=== PATIENT | male | born 1955 | race American Indian/Alaskan Native ===

== ENCOUNTER 2020-07-27 20:10 | Inpatient (IN) | payer OTHER ==
--- NOTE | 2020-07-27 20:56 | Event Note ---
ED Screening Note Date of service: 07/27/20 Time: 20:51 ED Screening Note: 65-year-old -S[place]i male with a past medical history asthma, hypertension, diabetes and COPD presents to the emergency room for 1 month of intermittent shortness of breath. It is noted that patient's has a pulse ox of 84% on room air. Patient endorses that his pulse ox will, Sometimes drop as low with the 70s . Patient states that he was seen by . Not too long ago was told he is walking pneumonia was placed on antibiotics. Patient states he has finished that and still complains of shortness of breath. Patient is currently on Trelegy, glipizide amlodipine and albuterol. This initial assessment/diagnostic orders/clinical plan/treatment(s) is/are subject to change based on patients health status, clinical progression and re- assessment by fellow clinical providers in the ED. Further treatment and workup at subsequent clinical providers discretion. Patient/guardian urged not to elope from the ED as their condition may be serious if not clinically assessed and managed. Initial orders include: CBC CMP chest x-ray patient has been placed on oxygen 2 L via nasal cannula Inform charge nurse and ER attending patient status.
--- NOTE | 2020-07-27 21:44 | XRay Report ---
CHEST 2 VIEWS 2118 INDICATION / CLINICAL INFORMATION: sob,cough and rales COMPARISON: None available. FINDINGS: SUPPORT DEVICES: None. HEART / MEDIASTINUM: No significant abnormality. LUNGS / PLEURA: Bibasilar moderate atelectatic changes are seen. No definite pleural effusions are no tam. No pneumothorax. ADDITIONAL FINDINGS: No significant additional findings. IMPRESSION: Moderate basilar atelectatic changes. Developing pneumonitis is not excluded. Signer Name: Toño Velez MD Signed: 07/27/2020 9:39 PM Workstation Name: [id number]
--- NOTE | 2020-07-27 21:57 | Emergency Department Report ---
HPI - General Chief Complaint: Dyspnea/Respdistress Time Seen by Provider: 07/27/20 21:31 - HPI HPI: This is a 65-year-old -[place] male presents to the emergency department with complaint of a 1 week history of progressively worsening shortness of breath, as well as a mixed dry and productive cough. He denies any fever, chest pain, lower extremity swelling, nausea, vomiting or diaphoresis. Patient has a history of COPD but is not oxygen dependent at home. He also has a history of asthma and hypertension. Patient says that he was diagnosed with walking pneumonia about 2 or 3 weeks ago and was placed on antibiotics. After finishing the antibiotics the patient says that his condition "went in the other direction." He does not have a primary care physician. The patient travels a lot for work but no obvious contact with anyone with COVID-19. He says that he took a negative COVID-19 test yesterday. He denies any tobacco or illicit drug use. He has not taken anything for symptoms prior to presentation today. The patient was found to have a room air pulse ox of 84% through triage. While he is not oxygen dependent at home, the patient does check his oxygen levels and says that sometimes he will go into the low 70s at night. ED Past Medical Hx - Past Medical History Previous Medical History?: Yes Hx Hypertension: Yes Hx Asthma: Yes Hx COPD: Yes - Surgical History Past Surgical History?: No - Social History Smoking Status: Never Smoker Substance Use Type: None ED Review of Systems ROS: Stated complaint: KATHY Other details as noted in HPI Comment: All other systems reviewed and negative Constitutional: denies: chills, fever Eyes: denies: eye pain, vision change ENT: denies: ear pain, throat pain Respiratory: cough, shortness of breath Cardiovascular: denies: chest pain, edema Gastrointestinal: denies: abdominal pain, vomiting Genitourinary: denies: dysuria, discharge Musculoskeletal: denies: back pain, arthralgia Skin: denies: rash, lesions Neurological: denies: headache, weakness Physical Exam - Physical Exam Vital Signs: Vital Signs 07/27/20 20:16 Temperature 98.0 F Pulse Rate 112 H Respiratory 22 Rate Blood Pressure 184/102 O2 Sat by Pulse 84 Oximetry Physical Exam: GENERAL: The patient is well-developed well-nourished. HENT: Normocephalic. Atraumatic. Patient has moist mucous membranes. EYES: Extraocular motions are intact. NECK: Supple. Trachea is midline. CHEST/LUNGS: Mild expiratory wheezing. Mild tachypnea but no accessory muscle use. There is no respiratory distress noted. HEART/CARDIOVASCULAR: Regular. There is no tachycardia. There is no murmur. ABDOMEN: Abdomen is soft, nontender. Patient has normal bowel sounds. SKIN: Skin is warm and dry. NEURO: The patient is awake, alert, and oriented. The patient is cooperative. The patient has no focal neurologic deficits. Normal speech. MUSCULOSKELETAL: There is no tenderness or deformity. There is no limitation range of motion. ED Course Vital Signs 07/27/20 20:16 Temperature 98.0 F Pulse Rate 112 H Respiratory 22 Rate Blood Pressure 184/102 O2 Sat by Pulse 84 Oximetry ED Medical Decision Making - Lab Data Result diagrams: 07/27/20 21:57 07/27/20 21:57 Lab Results 07/27/20 07/27/20 07/27/20 Range/Units 21:57 21:57 21:57 WBC 8.0 (4.5-11.0) K/mm3 RBC 4.78 (3.65-5.03) M/mm3 Hgb 14.3 (11.8-15.2) gm/dl Hct 44.0 (35.5-45.6) % MCV 92 (84-94) fl MCH 30 (28-32) pg MCHC 33 (32-34) % RDW 13.8 (13.2-15.2) % Plt Count 141 (140-440) K/mm3 Lymph % (Auto) 16.3 (13.4-35.0) % [place] % (Auto) 12.4 H (0.0-7.3) % Eos % (Auto) 3.5 (0.0-4.3) % Baso % (Auto) 0.6 (0.0-1.8) % Lymph # (Auto) 1.3 (1.2-5.4) K/mm3 [place] # (Auto) 1.0 H (0.0-0.8) K/mm3 Eos # (Auto) 0.3 (0.0-0.4) K/mm3 Baso # (Auto) 0.0 (0.0-0.1) K/mm3 Seg Neutrophils % 67.2 (40.0-70.0) % Seg Neutrophils # 5.4 (1.8-7.7) K/mm3 PT 14.8 (12.2-14.9) Sec. INR 1.16 H (0.87-1.13) APTT 28.1 (24.2-36.6) Sec. D-Dimer 161.71 (0-234) ng/mlDDU Sodium 142 (137-145) mmol/L Potassium 4.4 (3.6-5.0) mmol/L Chloride 102.6 (98-107) mmol/L Carbon Dioxide 33 H (22-30) mmol/L Anion Gap 11 mmol/L BUN 28 H (9-20) mg/dL Creatinine 1.4 H (0.8-1.3) mg/dL Estimated GFR > 60 ml/min BUN/Creatinine Ratio 20 % Glucose 140 H (75-100) mg/dL Calcium 9.0 (8.4-10.2) mg/dL Total Bilirubin 0.20 (0.1-1.2) mg/dL AST 17 (5-40) units/L ALT 30 (7-56) units/L Alkaline Phosphatase 70 (35-129) units/L Troponin T (0.00-0.029) ng/mL NT-Pro-B Natriuret Pep (0-900) pg/mL Total Protein 5.9 L (6.3-8.2) g/dL Albumin 4.0 (3.9-5) g/dL Albumin/Globulin Ratio 2.1 % 07/27/20 Range/Units 21:57 WBC (4.5-11.0) K/mm3 RBC (3.65-5.03) M/mm3 Hgb (11.8-15.2) gm/dl Hct (35.5-45.6) % MCV (84-94) fl MCH (28-32) pg MCHC (32-34) % RDW (13.2-15.2) % Plt Count (140-440) K/mm3 Lymph % (Auto) (13.4-35.0) % [place] % (Auto) (0.0-7.3) % Eos % (Auto) (0.0-4.3) % Baso % (Auto) (0.0-1.8) % Lymph # (Auto) (1.2-5.4) K/mm3 [place] # (Auto) (0.0-0.8) K/mm3 Eos # (Auto) (0.0-0.4) K/mm3 Baso # (Auto) (0.0-0.1) K/mm3 Seg Neutrophils % (40.0-70.0) % Seg Neutrophils # (1.8-7.7) K/mm3 PT (12.2-14.9) Sec. INR (0.87-1.13) APTT (24.2-36.6) Sec. D-Dimer (0-234) ng/mlDDU Sodium (137-145) mmol/L Potassium (3.6-5.0) mmol/L Chloride (98-107) mmol/L Carbon Dioxide (22-30) mmol/L Anion Gap mmol/L BUN (9-20) mg/dL Creatinine (0.8-1.3) mg/dL Estimated GFR ml/min BUN/Creatinine Ratio % Glucose (75-100) mg/dL Calcium (8.4-10.2) mg/dL Total Bilirubin (0.1-1.2) mg/dL AST (5-40) units/L ALT (7-56) units/L Alkaline Phosphatase (35-129) units/L Troponin T 0.021 (0.00-0.029) ng/mL NT-Pro-B Natriuret Pep 11.56 (0-900) pg/mL Total Protein (6.3-8.2) g/dL Albumin (3.9-5) g/dL Albumin/Globulin Ratio % - EKG Data -: EKG Interpreted by Wy EKG shows normal: sinus rhythm, axis, intervals, QRS complexes, ST-T waves Rate: tachycardia (101 bpm) - EKG Data When compared to previous EKG there are: previous EKG unavailable Interpretation: normal EKG - Radiology Data Radiology results: report reviewed CHEST 2 VIEWS 9068 INDICATION / CLINICAL INFORMATION: sob,cough and rales CO MPARISON: None available. FINDINGS: SUPPORT DEVICES: None. HEART / MEDIASTINUM: No significant abnormality. LUNGS / PLEURA: Bibasilar moderate atelectatic changes are seen. No definite pleural effusions are noted. No pneumothorax. ADDITIONAL FINDINGS: No significant additional findings. IMPRESSION: Moderate basilar atelectatic changes. Developing pneumonitis is not excluded. - Medical Decision Making This patient presents to the emergency department with a complaint of some progressively worsening shortness of breath and a mixed dry and productive cough. The patient had a room air oxygen saturation of 84%. He is not oxygen dependent for his COPD. The patient was placed on supplemental oxygen via nasal cannula and he went up into the high 90s. Chest x-ray shows some atelectatic changes versus some developing pneumonitis. I once again tried the patient off of oxygen, while he was resting and not exertional, and his pulse ox went down into the low 80s. It goes down into the 70s when the patient is sleeping. Patient's labs have been mostly unremarkable other than some mild elevation in the carbon dioxide. Patient has been placed on Solu-Medrol and has been given a breathing treatment. As the patient has desaturation without supplemental oxygen and is not oxygen dependent at home, will be admitted to the hospital for further evaluation and treatment. The patient has been accepted for admission by the hospitalist, Dr. Rome. Critical Care Time: No Critical care attestation.: If time is entered above; I have spent that time in minutes in the direct care of this critically ill patient, excluding procedure time. ED Disposition Clinical Impression: COPD exacerbation, Hypoxia Disposition: OP ADMIT IP TO THIS HOSP Is pt being admited?: Yes Condition: Serious Time of Disposition: 23:20
[2020-07-27 22:39] LABS: Basophils % (Auto) 0.6 % (0.0-1.8); Eosinophils # (Auto) 0.3 K/mm3 (0.0-0.4); Eosinophils % (Auto) 3.5 % (0.0-4.3); Hemoglobin 14.3 gm/dl (11.8-15.2); Lymphocytes # (Auto) 1.3 K/mm3 (1.2-5.4); Lymphocytes % (Auto) 16.3 % (13.4-35.0); Mean Corpuscular HGB Conc 33 % (32-34); Mean Corpuscular Volume 92 fl (84-94); Monocytes % (Auto) 12.4 % (0.0-7.3); Platelet Count 141 K/mm3 (140-440); Red Blood Count 4.78 M/mm3 (3.65-5.03); Red Cell Distribution Width 13.8 % (13.2-15.2)
[2020-07-27 22:47] LABS: INR 1.16 (0.87-1.13)
[2020-07-27 22:48] LABS: Partial Thromboplastin Time 28.1 Sec. (24.2-36.6)
[2020-07-27 22:53] LABS: Alanine Aminotransferase 30 units/L (7-56); BUN/Creatinine Ratio 20; Blood Urea Nitrogen 28 mg/dL (9-20); Hemolysis Index 16
[2020-07-27] MEDS ORDERED: methylPREDNISolone Sod Succinate 125 MG/2 ML INJ IV ONE (22:57)
[2020-07-27] MEDS ORDERED: IPRATROPIUM/ALBUTEROL SULFATE 3 ML AMPUL.NEB IH ONE (22:57)
[2020-07-27] MEDS ORDERED: ACETAMINOPHEN 325 MG TAB PO PRN (23:29)
[2020-07-27] MEDS ORDERED: ONDANSETRON 4 MG/2 ML INJ IV PRN (23:29)
--- NOTE | 2020-07-27 23:40 | History and Physical Report ---
History of Present Illness Date of examination: 07/27/20 Chief complaint: Shortness of breath Acute COPD exacerbation History of present illness: 65-year-old -Mexican male with past medical history of COPD, asthma and hypertension was brought to the emergency room to the emergency department with complaint of a 1 week history of progressively worsening shortness of breath, as well as a mixed dry and productive cough. He denies any fever, chest pain, lower extremity swelling, nausea, vomiting or diaphoresis. Patient says that he was diagnosed with walking pneumonia about 2 or 3 weeks ago and was placed on antibiotics. After finishing the antibiotics the patient says that his condition "went in the other direction." He does not have a primary care physician. He says that he took a negative COVID-19 test yesterday Past History Past Medical History: COPD, hypertension Medications and Allergies Allergies Allergy/AdvReac Type Severity Reaction Status Date / Time No Known Allergies Allergy Verified 07/27/20 20:17 Review of Systems Ears, nose, mouth and throat: deferred Cardiovascular: shortness of breath, high blood pressure Respiratory: cough, cough with sputum, shortness of breath, dyspnea on exertion Exam - Constitutional Vitals: Temp Pulse Resp BP Pulse Ox 98.0 F 112 H 22 184/102 84 07/27/20 20:16 07/27/20 20:16 07/27/20 20:16 07/27/20 20:16 07/27/20 20:16 General appearance: Present: mild distress - EENT Eyes: Present: PERRL, EOM intact ENT: hearing intact, clear oral mucosa - Neck Neck: Present: supple, normal ROM - Respiratory Respiratory effort: normal Respiratory: bilateral: wheezing - Cardiovascular Rhythm: regular Heart Sounds: Present: S1 & S2 Peripheral Pulses: within normal limits - Abdominal General gastrointestinal: Present: soft, non-tender, non-distended, normal bowel sounds - Integumentary Integumentary: Present: clear, warm, dry - Musculoskeletal Musculoskeletal: gait normal, strength equal bilaterally - Psychiatric Psychiatric: appropriate mood/affect, intact judgment & insight - Neurologic Neurologic: CNII-XII intact, moves all extremities HEART Score - HEART Score Troponin: Troponin T 0.021 ng/mL (0.00-0.029) 07/27/20 21:57 Results - Labs CBC & Chem 7: 07/27/20 21:57 07/27/20 21:57 Labs: Laboratory Last Values WBC 8.0 K/mm3 (4.5-11.0) 07/27/20 21:57 RBC 4.78 M/mm3 (3.65-5.03) 07/27/20 21:57 Hgb 14.3 gm/dl (11.8-15.2) 07/27/20 21:57 Hct 44.0 % (35.5-45.6) 07/27/20 21:57 MCV 92 fl (84-94) 07/27/20 21:57 MCH 30 pg (28-32) 07/27/20 21:57 MCHC 33 % (32-34) 07/27/20 21:57 RDW 13.8 % (13.2-15.2) 07/27/20 21:57 Plt Count 141 K/mm3 (140-440) 07/27/20 21:57 Lymph % (Auto) 16.3 % (13.4-35.0) 07/27/20 21:57 [place] % (Auto) 12.4 % (0.0-7.3) H 07/27/20 21:57 Eos % (Auto) 3.5 % (0.0-4.3) 07/27/20 21:57 Baso % (Auto) 0.6 % (0.0-1.8) 07/27/20 21:57 Lymph # (Auto) 1.3 K/mm3 (1.2-5.4) 07/27/20 21:57 [place] # (Auto) 1.0 K/mm3 (0.0-0.8) H 07/27/20 21:57 Eos # (Auto) 0.3 K/mm3 (0.0-0.4) 07/27/20 21:57 Baso # (Auto) 0.0 K/mm3 (0.0-0.1) 07/27/20 21:57 Seg Neutrophils % 67.2 % (40.0-70.0) 07/27/20 21:57 Seg Neutrophils # 5.4 K/mm3 (1.8-7.7) 07/27/20 21:57 PT 14.8 Sec. (12.2-14.9) 07/27/20 21:57 INR 1.16 (0.87-1.13) H 07/27/20 21:57 APTT 28.1 Sec. (24.2-36.6) 07/27/20 21:57 D-Dimer 161.71 ng/mlDDU (0-234) 07/27/20 21:57 Sodium 142 mmol/L (137-145) 07/27/20 21:57 Potassium 4.4 mmol/L (3.6-5.0) 07/27/20 21:57 Chloride 102.6 mmol/L (98-107) 07/27/20 21:57 Carbon Dioxide 33 mmol/L (22-30) H 07/27/20 21:57 Anion Gap 11 mmol/L 07/27/20 21:57 BUN 28 mg/dL (9-20) H 07/27/20 21:57 Creatinine 1.4 mg/dL (0.8-1.3) H 07/27/20 21:57 Estimated GFR > 60 ml/min 07/27/20 21:57 BUN/Creatinine Ratio 20 % 07/27/20 21:57 Glucose 140 mg/dL (75-100) H 07/27/20 21:57 Calcium 9.0 mg/dL (8.4-10.2) 07/27/20 21:57 Total Bilirubin 0.20 mg/dL (0.1-1.2) 07/27/20 21:57 AST 17 units/L (5-40) 07/27/20 21:57 ALT 30 units/L (7-56) 07/27/20 21:57 Alkaline Phosphatase 70 units/L (35-129) 07/27/20 21:57 Troponin T 0.021 ng/mL (0.00-0.029) 07/27/20 21:57 NT-Pro-B Natriuret Pep 11.56 pg/mL (0-900) 07/27/20 21:57 Total Protein 5.9 g/dL (6.3-8.2) L 07/27/20 21:57 Albumin 4.0 g/dL (3.9-5) 07/27/20 21:57 Albumin/Globulin Ratio 2.1 % 07/27/20 21:57 - Imaging and Cardiology Chest x-ray: report reviewed Assessment and Plan - Patient Problems (1) COPD exacerbation Current Visit: Yes Status: Acute Plan to address problem: Admit the patient to the medical telemetry. Put the patient on cardiac diet. Oxygen by nasal cannula 3 L/min. Rocephin 1 g IV daily and Zithromax 250 mg p.o. daily. DuoNeb by nebulizer every 4 hours as needed. Solu-Medrol 80 mg IV every 8 hours. Due to the blood culture and sputum culture. Patient also needs outpatient sleep study for obstructive sleep apnea. Protonix 40 mg p.o. daily for GI prophylaxis and heparin 5000 units subcu every 8 hours for DVT prophylaxis. (2) Hypoxia Current Visit: Yes Status: Acute Plan to address problem: Oxygen by nasal cannula 3 L/min. Rocephin 1 g IV daily and Zithromax 250 mg p.o. daily. DuoNeb by nebulizer every 4 hours as needed. Solu-Medrol 80 mg IV every 8 hours.
[2020-07-27] MEDS ORDERED: AZITHROMYCIN 250 MG TAB PO ONE (23:43)
[2020-07-28] MEDS: FAMOTIDINE 20 MG TAB PO SCH ×3 (00:41→22:13)
[2020-07-28] MEDS: methylPREDNISolone Sod Succinate 40 MG/1 ML INJ IV SCH ×4 (00:42→22:13)
[2020-07-28] MEDS: IPRATROPIUM/ALBUTEROL SULFATE 3 ML AMPUL.NEB IH SCH ×4 (02:26→20:35)
[2020-07-28 07:42] LABS: Hematocrit 46.4 % (35.5-45.6); Hemoglobin 15.1 gm/dl (11.8-15.2); Mean Corpuscular HGB Conc 33 % (32-34); Mean Corpuscular Volume 93 fl (84-94); Platelet Count 133 K/mm3 (140-440); Red Blood Count 4.99 M/mm3 (3.65-5.03); Red Cell Distribution Width 13.7 % (13.2-15.2)
[2020-07-28 08:03] LABS: BUN/Creatinine Ratio 22; Blood Urea Nitrogen 26 mg/dL (9-20); Hemolysis Index 15
[2020-07-28 08:29] LABS: Anisocytosis 1+; Band Neutrophils # (Manual) 0.1 K/mm3; Total Cells Counted 100
[2020-07-28 08:30] LABS: Platelet Estimate Consistent w Auto; Toxic Granulation 1+
[2020-07-28] MEDS ORDERED: DEXTROSE 50% IN WATER (25GM) 50 ML SYRINGE IV PRN (11:51)
[2020-07-28] MEDS: INSULIN LISPRO 100 UNIT/ML VIAL 3 mL SUB-Q SCH ×3 (12:46→22:14)
--- NOTE | 2020-07-28 13:54 | Progress Note ---
Assessment and Plan (1) COPD exacerbation Current Visit: Yes Status: Acute Plan to address problem: Patient on nebulizing treatments as needed. Oxygen by nasal cannula 3 L/min. Solu-Medrol 80 mg IV every 8 hours. (2) Hypoxia Current Visit: Yes Status: Acute Patient still requiring 3 to 4 L of oxygen by nasal cannula. Patient had a bout of pneumonia about 2 to [address] check [address] angiogram. We will also check for COVID-19. We will adjust antibiotics as needed. 3. Diabetes mellitus We will monitor Accu-Cheks closely. Subjective Date of service: 07/28/20 Principal diagnosis: (1) COPD exacerbation Interval history: 65-year-old -[place] male with past medical history of COPD, asthma and hypertension was brought to the emergency room to the emergency department with complaint of a 1 week history of progressively worsening shortness of breath, as well as a mixed dry and productive cough. He denies any fever, chest pain, l ower extremity swelling, nausea, vomiting or diaphoresis. Patient says that he was diagnosed with walking pneumonia about 2 or 3 weeks ago and was placed on antibiotics. After finishing the antibiotics the patient says that his condition "went in the other direction." He does not have a primary care physician. He says that he took a negative COVID-19 test yesterday. 07/28/2020 Patient indicates that he was diagnosed with pneumonia in [place] about 2 weeks ago. Was placed on antibiotics but since he ran out of his antibiotics he became short of breath again and started having some cough which is mildly productive of sputum. Objective - Constitutional Vitals: Vital Signs - 12hr 07/28/20 07/28/20 07/28/20 02:00 04:00 06:00 Temperature Pulse Rate 103 H 108 H 107 H Respiratory 18 16 18 Rate Blood Pressure 164/94 140/79 139/80 [Left] O2 Sat by Pulse 97 94 96 Oximetry 07/28/20 07/28/20 07/28/20 08:50 08:52 09:41 Temperature 98.4 F 98.4 F Pulse Rate 109 H 109 H Respiratory 20 20 20 Rate Blood Pressure 150/85 150/85 [Left] O2 Sat by Pulse 96 96 96 Oximetry General appearance: Present: no acute distress, well-nourished - EENT Eyes: PERRL, EOM intact ENT: hearing intact, clear oral mucosa Ears: bilateral: normal - Neck Neck: supple, normal ROM - Respiratory Respiratory effort: normal Respiratory: bilateral: CTA - Breasts Breasts: normal - Cardiovascular Rhythm: regular Heart Sounds: Present: S1 & S2. Absent: gallop, rub Extremities: pulses intact, No edema, normal color, Full ROM - Gastrointestinal General gastrointestinal: Present: soft, non-tender, non-distended, normal bowel sounds - Genitourinary Male genitourinary: normal - Integumentary Integumentary: clear, warm, dry - Musculoskeletal Musculoskeletal: 1, strength equal bilaterally - Neurologic Neurologic: moves all extremities - Psychiatric Psychiatric: memory intact, appropriate mood/affect, intact judgment & insight - Labs CBC & Chem 7: 07/28/20 07:28 07/28/20 07:28 Labs: Abnormal lab results 07/27/20 07/27/20 07/27/20 Range/Units 21:57 21:57 21:57 Hct (35.5-45.6) % Plt Count (140-440) K/mm3 [place] % (Auto) 12.4 H (0.0-7.3) % [place] # (Auto) 1.0 H (0.0-0.8) K/mm3 Seg Neuts % (Manual) (40.0-70.0) % Lymphocytes % (Manual) (13.4-35.0) % Seg Neutrophils # Man (1.8-7.7) K/mm3 Lymphocytes # (Manual) (1.2-5.4) K/mm3 INR 1.16 H (0.87-1.13) Potassium (3.6-5.0) mmol/L Carbon Dioxide 33 H (22-30) mmol/L BUN 28 H (9-20) mg/dL Creatinine 1.4 H (0.8-1.3) mg/dL Glucose 140 H (75-100) mg/dL POC Glucose (70-105) mg/dL Total Protein 5.9 L (6.3-8.2) g/dL 07/28/20 07/28/20 07/28/20 Range/Units 07:28 07:28 11:42 Hct 46.4 H (35.5-45.6) % Plt Count 133 L (140-440) K/mm3 [place] % (Auto) (0.0-7.3) % [place] # (Auto) (0.0-0.8) K/mm3 Seg Neuts % (Manual) 90.0 H (40.0-70.0) % Lymphocytes % (Manual) 7.0 L (13.4-35.0) % Seg Neutrophils # Man 8.1 H (1.8-7.7) K/mm3 Lymphocytes # (Manual) 0.6 L (1.2-5.4) K/mm3 INR (0.87-1.13) Potassium 5.5 H D (3.6-5.0) mmol/L Carbon Dioxide 34 H (22-30) mmol/L BUN 26 H (9-20) mg/dL Creatinine (0.8-1.3) mg/dL Glucose 332 H (75-100) mg/dL POC Glucose 325 H (70-105) mg/dL Total Protein (6.3-8.2) g/dL HEART Score - HEART Score Troponin: Troponin T 0.021 ng/mL (0.00-0.029) 07/27/20 21:57
[2020-07-28] MEDS ORDERED: VANCOMYCIN PHARMACY TO DOSE IV SCH (15:00)
[2020-07-28] MEDS ORDERED: VANCOMYCIN 2,000 MG in SODIUM CHLORIDE 0.9% 500 ML 500 ML IV ONE (15:00)
[2020-07-28 16:58] LABS: C-Reactive Protein 0.5 mg/dL (0.00-1.30)
[2020-07-28] MEDS: CEFEPIME/NS 2 GM/100 ML 2 GM/100 ML BAG IV SCH ×2 (18:55→22:14)
[2020-07-29] MEDS: methylPREDNISolone Sod Succinate 40 MG/1 ML INJ IV SCH ×3 (05:45→21:37)
[2020-07-29] MEDS ORDERED: VANCOMYCIN 1,750 MG in SODIUM CHLORIDE 0.9% 500 ML 500 ML IV SCH (06:00)
[2020-07-29] MEDS: CEFEPIME/NS 2 GM/100 ML 2 GM/100 ML BAG IV SCH ×2 (06:21→14:21)
[2020-07-29] MEDS: IPRATROPIUM/ALBUTEROL SULFATE 3 ML AMPUL.NEB IH SCH ×4 (07:13→19:01)
[2020-07-29] MEDS: INSULIN LISPRO 100 UNIT/ML VIAL 3 mL SUB-Q SCH ×4 (09:24→21:40)
[2020-07-29] MEDS: FAMOTIDINE 20 MG TAB PO SCH ×2 (09:24→21:37)
--- NOTE | 2020-07-29 13:36 | Consultation ---
History of Present Illness - Reason for Consult Consult date: 07/29/20 - History of Present Illness 65-year-old man past medical history COPD, asthma, hypertension brought to the hospital complaining of 1 week of shortness of breath which has been progressively worsening since onset. He also complains of dry cough as well. Denies any fevers, chills, chest pain. Reports receiving outpatient antibiotics 2 to 3 weeks prior to admission, but this did not help this as having outpatient negative Covid test the day prior to admission. Afebrile with a white count of 9. Normal renal function, normal procalcitonin. Covid pending. Currently on cefepime. No cultures available for review. Currently on 3 L nasal cannula. Imaging personally reviewed: Chest x-ray: Moderate basilar atelectasis. Review of systems: Deferred due to PPE conservation strategy. Past History Past Medical History: COPD, hypertension Medications and Allergies Allergies Allergy/AdvReac Type Severity Reaction Status Date / Time No Known Allergies Allergy Verified 07/27/20 20:17 Active Meds: Active Medications Acetaminophen (Acetaminophen 325 Mg Tab) 650 mg PO Q4H PRN PRN Reason: Pain MILD(1-3)/Fever >100.5/TYLER Albuterol/Ipratropium (Ipratropium/Albuterol Sulfate 3 Ml Ampul.Neb) 1 ampul IH Q6HRT [facility] Last Admin: 07/29/20 08:20 Dose: 1 ampul Documented by: Dextrose (Dextrose 50% In Water (25gm) 50 Ml Syringe) 50 ml IV Q30MIN PRN; Protocol PRN Reason: Hypoglycemia Famotidine (Famotidine 20 Mg Tab) 20 mg PO BID [facility] Last Admin: 07/29/20 09:24 Dose: 20 mg Documented by: Cefepime HCl (Cefepime/Ns 2 Gm/100 Ml) 2 gm in 100 mls @ 200 mls/hr IV Q8H [facility]; Protocol Last Admin: 07/29/20 06:21 Dose: 200 mls/hr Documented by: Vancomycin HCl 1,750 mg/ (Sodium Chloride) 535 mls @ 333.333 mls/hr IV Q12H [facility] Last Admin: 07/29/20 05:45 Dose: 333.333 mls/hr Documented by: Insulin Human Lispro (Insulin Lispro 100 Unit/Ml Vial 3 Ml) 0 unit SUB-Q ACHS [facility]; Protocol Last Admin: 07/29/20 12:33 Dose: 4 unit Documented by: Methylprednisolone Sodium Succinate (Methylprednisolone Sod Succinate 40 Mg/1 Ml Inj) 80 mg IV Q8HR [facility] Last Admin: 07/29/20 05:45 Dose: 80 mg Documented by: Ondansetron HCl (Ondansetron 4 Mg/2 Ml Inj) 4 mg IV Q8H PRN PRN Reason: Nausea And Vomiting Sodium Chloride (Sodium Chloride 0.9% 10 Ml Flush Syringe) 10 ml IV BID [facility] Last Admin: 07/29/20 09:25 Dose: 10 ml Documented by: Sodium Chloride (Sodium Chloride 0.9% 10 Ml Flush Syringe) 10 ml IV PRN PRN PRN Reason: LINE FLUSH Physical Examination - Constitutional Vitals: Vital Signs Temp Pulse Resp BP Pulse Ox 98.2 F 98 H 18 141/83 96 07/29/20 07:25 07/29/20 10:00 07/29/20 11:00 07/29/20 07:25 07/29/20 08:21 Temperature -Last 24 Hours Temperature 98.2 F Temperature 98.3 F Temperature 98.2 F Temperature 98.0 F Temperature 98.7 F Results - Labs CBC & Chem 7: 07/28/20 07:28 07/28/20 16:12 Labs: Abnormal lab results 07/28/20 07/28/20 07/28/20 Range/Units 16:12 16:27 21:25 Glucose 331 H (75-100) mg/dL POC Glucose 299 H 269 H (70-105) mg/dL Lactate Dehydrogenase 235 H (91-180) units/L 07/29/20 07/29/20 Range/Units 07:23 11:11 Glucose (75-100) mg/dL POC Glucose 251 H 297 H (70-105) mg/dL Lactate Dehydrogenase (91-180) units/L Assessment and Plan Cultures: Covid pending A/P: 65-year-old man past medical history COPD, asthma, hypertension admitted with probable COPD exacerbation. #Covid PUI: Minimal evidence of pneumonia on chest x-ray at present time. Follow-up test results #Acute hypoxic respiratory failure: Currently on 3 L nasal cannula #COPD exacerbation: Steroids per primary. #Asthma Recs: -Stop cefepime given normal white count and procalcitonin. -Follow-up Covid test results -Anticoagulation per hospital protocol -If COVID-19 positive will start remdesivir. Thank you for the consult, we will continue to follow. Desi Muñoz MD [facility] O: [phone] F: [phone]
--- NOTE | 2020-07-29 15:02 | Cat Scan Report ---
CTA CHEST WITH IV CONTRAST INDICATION: Hypoxia, rule out pneumonia. TECHNIQUE: Axial CT images were obtained through the chest after injection of IV contrast. 3 plane MIP reconstru ctions were produced. All CT scans at this location are performed using CT dose reduction for ALARA b y means of automated exposure control. COMPARISON: None available. FINDINGS: Pulmonary Arteries: No pulmonary emboli. Lungs: There are bibasilar consolidations with an associated tiny left pleural effusion. Trachea and Bronchi: No significant abnormality. Heart and Pericardium: No significant abnormality. Vasculature: No significant abnormality. Lymphatics: No lymphadenopathy. Additional Findings: None. Upper Abdomen: No acute findings. Skeletal Structures: No acute findings or aggressive bone lesions. IMPRESSION: 1. No CT evidence for pulmonary embolism. 2. Bibasilar consolidations with associated tiny left pleural effusion can indicate pneumonia or biba silar atelectasis. Signer Name: Rishi Hood MD Signed: 07/29/2020 2:58 PM Workstation Name: [id number]
[2020-07-29 17:10] LABS: Hematocrit 42.5 % (35.5-45.6); Hemoglobin 13.5 gm/dl (11.8-15.2); Mean Corpuscular HGB Conc 32 % (32-34); Mean Corpuscular Volume 93 fl (84-94); Platelet Count 157 K/mm3 (140-440); Red Blood Count 4.55 M/mm3 (3.65-5.03); Red Cell Distribution Width 13.9 % (13.2-15.2)
[2020-07-29 17:29] LABS: BUN/Creatinine Ratio 23; Blood Urea Nitrogen 32 mg/dL (9-20); Calcium 8.8 mg/dL (8.4-10.2); Hemolysis Index 6
[2020-07-29 18:08] LABS: Total Cells Counted 100
[2020-07-29 18:09] LABS: Platelet Estimate Consistent w Auto; Tear Drop Cells Rare
[2020-07-30] MEDS: methylPREDNISolone Sod Succinate 40 MG/1 ML INJ IV SCH ×3 (05:50→22:34)
[2020-07-30] MEDS: IPRATROPIUM/ALBUTEROL SULFATE 3 ML AMPUL.NEB IH SCH ×5 (06:26→20:39)
[2020-07-30] MEDS: INSULIN LISPRO 100 UNIT/ML VIAL 3 mL SUB-Q SCH ×3 (09:08→22:35)
[2020-07-30] MEDS: FAMOTIDINE 20 MG TAB PO SCH ×2 (09:09→22:34)
--- NOTE | 2020-07-30 16:36 | Progress Note ---
Assessment and Plan Cultures: Covid negative A/P: 65-year-old man past medical history COPD, asthma, hypertension admitted with probable COPD exacerbation. #Acute hypoxic respiratory failure: Currently on 2 L nasal cannula. Likely secondary to COPD exacerbation. Covid negative. #COPD exacerbation: Steroids per primary. #Asthma Recs: -Recommendations for COPD exacerbation per primary team. Thank you for the consult, we will sign off. Please call with questions. Desi Muñoz MD [facility] ([facility]) O: [phone] F: [phone] Subjective Date of service: 07/30/20 Principal diagnosis: (1) COPD exacerbation Interval history: Afebrile, no acute changes at present. Covid testing negative. On 2 L nasal cannula. Objective - Exam Narrative Exam: Physical Exam: Constitutional: Alert, cooperative. No acute distress Head, Ears, Nose: Normocephalic, atraumatic. Eyes: Conjunctivae/corneas clear. No icterus. No ptosis. Neck: Supple, no meningeal signs Oral: dentition fair, no thrush Cardiovascular: S1, S2 normal. Respiratory: Good air entry, clear to auscultation bilaterally GI: Soft, non-tender; bowel sounds normal. No peritoneal signs. Musculoskeletal: No pedal edema, no cyanosis. Skin: No rash or abscess Hem/Lymphatic: No palpable cervical or supraclavicular nodes. No lymphangitis Psych: Mood ok. Affect normal Neurological: Awake, alert, oriented. No gross abnormality - Constitutional Vitals: Vital Signs Temp Pulse Resp BP Pulse Ox 98.4 F 110 H 20 160/101 96 07/30/20 07:22 07/30/20 14:04 07/30/20 14:04 07/30/20 07:22 07/30/20 11:00 Temperature -Last 24 Hours Temperature 98.4 F Temperature 98.2 F Temperature 98.2 F Temperature 98.9 F - Labs CBC & Chem 7: 07/29/20 16:33 07/29/20 16:33 Labs: Abnormal lab results 07/29/20 07/29/20 07/29/20 Range/Units 16:33 16:33 20:21 WBC 11.4 H (4.5-11.0) K/mm3 Seg Neuts % (Manual) 92.0 H (40.0-70.0) % Lymphocytes % (Manual) 3.0 L (13.4-35.0) % Seg Neutrophils # Man 10.5 H (1.8-7.7) K/mm3 Lymphocytes # (Manual) 0.3 L (1.2-5.4) K/mm3 BUN 32 H (9-20) mg/dL Creatinine 1.4 H (0.8-1.3) mg/dL Glucose 404 H (75-100) mg/dL POC Glucose 348 H (70-105) mg/dL 07/30/20 07/30/20 Range/Units 07:24 11:29 WBC (4.5-11.0) K/mm3 Seg Neuts % (Manual) (40.0-70.0) % Lymphocytes % (Manual) (13.4-35.0) % Seg Neutrophils # Man (1.8-7.7) K/mm3 Lymphocytes # (Manual) (1.2-5.4) K/mm3 BUN (9-20) mg/dL Creatinine (0.8-1.3) mg/dL Glucose (75-100) mg/dL POC Glucose 207 H 344 H (70-105) mg/dL
--- NOTE | 2020-07-30 18:48 | Progress Note ---
Assessment and Plan (1.) COPD exacerbation Current Visit: Yes Status: Acute Plan to address problem: Patient on nebulizing treatments as needed. Oxygen by nasal cannula 3 L/min. Continue on Solu-Medrol. (2.) Hypoxia Current Visit: Yes Status: Acute Patient still requiring 3 to 4 L of oxygen by nasal cannula. Patient had a bout of pneumonia about 2 to 3 weeks ago. We will arrange for oxygen by nasal cannula at home . (3.) Diabetes mellitus Patient placed on sliding scale . Will monitor closely for good glycemic control Subjective Date of service: 07/30/20 Principal diagnosis: (1) COPD exacerbation Interval history: 65-year-old -Mexican male with past medical history of COPD, asthma and hypertension was brought to the emergency room to the emergency department with complaint of a 1 week history of progressively worsening shortness of breath, as well as a mixed dry and productive cough. He denies any fever, chest pain, lower extremity swelling, nausea, vomiting or diaphoresis. Patient says that he was diagnosed with walking pneumonia about 2 or 3 weeks ago and was placed on antibiotics. After finishing the antibiotics the patient says that his condition "went in the other direction." He does not have a primary care p hysician. He says that he took a negative COVID-19 test yesterday. 07/28/2020 Patient indicates that he was diagnosed with pneumonia in [place] about 2 weeks ago. Was placed on antibiotics but since he ran out of his antibiotics he became short of breath again and started having some cough which is mildly productive of sputum. 07/29/2020 To feel short of breath on exertion. COVID-19 test was negative 07/30 2020 Denies new problems this a.m. Still hypoxic on minimal exertion. Doing well on oxygen by nasal cannula Objective - Constitutional Vitals: Vital Signs - 12hr 07/30/20 07/30/20 07/30/20 07:22 08:56 10:00 Temperature 98.4 F Pulse Rate 94 H 94 H Pulse Rate [ 109 H Anterior Bilateral Throughout] Respiratory 18 Rate Respiratory 20 Rate [Anterior Bilateral Throughout] Blood Pressure 160/101 O2 Sat by Pulse 97 94 Oximetry 07/30/20 07/30/20 07/30/20 11:00 14:04 15:36 Temperature 97.8 F Pulse Rate 120 H Pulse Rate [ 110 H Anterior Bilateral Throughout] Respiratory 24 20 Rate Respiratory 20 Rate [Anterior Bilateral Throughout] Blood Pressure 143/81 O2 Sat by Pulse 96 92 Oximetry General appearance: Present: no acute distress, well-nourished - EENT Eyes: PERRL, EOM intact ENT: hearing intact, clear oral mucosa Ears: bilateral: normal - Neck Neck: supple, normal ROM - Respiratory Respiratory effort: normal Respiratory: bilateral: CTA - Breasts Breasts: normal - Cardiovascular Rhythm: regular Heart Sounds: Present: S1 & S2. Absent: gallop, rub Extremities: pulses intact, No edema, normal color, Full ROM - Gastrointestinal General gastrointestinal: Present: soft, non-tender, non-distended, normal bowel sounds - Genitourinary Male genitourinary: normal - Integumentary Integumentary: clear, warm, dry - Musculoskeletal Musculoskeletal: 1, strength equal bilaterally - Neurologic Neurologic: moves all extremities - Psychiatric Psychiatric: memory intact, appropriate mood/affect, intact judgment & insight - Labs CBC & Chem 7: 07/29/20 16:33 07/29/20 16:33 Labs: Abnormal lab results 07/29/20 07/30/20 07/30/20 Range/Units 20:21 07:24 11:29 POC Glucose 348 H 207 H 344 H (70-105) mg/dL 07/30/20 Range/Units 17:11 POC Glucose 291 H (70-105) mg/dL HEART Score - HEART Score Troponin: Troponin T 0.021 ng/mL (0.00-0.029) 07/27/20 21:57
--- NOTE | 2020-07-30 19:05 | Progress Note ---
Assessment and Plan (1.) COPD exacerbation Current Visit: Yes Status: Acute On solumedrol. Solu-Medrol 80 mg IV every 8 hours. (2.) Hypoxia Current Visit: Yes Status: Acute Patient still requiring 3 to 4 L of oxygen by nasal cannula. Patient had a bout of pneumonia about 2 to 3 weeks ago. We will keep O2 saturation greater or equal to 94%. (3.) Diabetes mellitus We will adjust sliding scale for good glycemic control. Subjective Date of service: 07/29/20 Principal diagnosis: (1) COPD exacerbation Interval history: Late entry Note for - 07/29/2020 65-year-old -Beninese male with past medical history of COPD, asthma and hypertension was brought to the emergency room to the emergency department with complaint of a 1 week history of progressively worsening shortness of breath, as well as a mixed dry and productive cough. He denies any fever, chest pain, lower extremity swelling, nausea, vomiting or diaphoresis. Patient says that he was diagnosed with walking pneumonia about 2 or 3 weeks ago and was placed on antibiotics. After finishing the antibiotics the patient says that his condition "went in the other direction." He does not have a primary care physician. He says that he took a negative COVID-19 test yesterday. 07/28/2020 Patient indicates that he was diagnosed with pneumonia in [place] about 2 weeks ago. Was placed on antibiotics but since he ran out of his antibiotics he became short of breath again and started having some cough which is mildly productive of sputum. 07/29/2020 To feel short of breath on exertion. COVID-19 test was negative Objective - Constitutional Vitals: Vital Signs - 12hr 07/30/20 07/30/20 07/30/20 07:22 08:56 10:00 Temperature 98.4 F Pulse Rate 94 H 94 H Pulse Rate [ 109 H Anterior Bilateral Throughout] Respiratory 18 Rate Respiratory 20 Rate [Anterior Bilateral Throughout] Blood Pressure 160/101 O2 Sat by Pulse 97 94 Oximetry 07/30/20 07/30/20 07/30/20 11:00 14:04 15:36 Temperature 97.8 F Pulse Rate 120 H Pulse Rate [ 110 H Anterior Bilateral Throughout] Respiratory 24 20 Rate Respiratory 20 Rate [Anterior Bilateral Throughout] Blood Pressure 143/81 O2 Sat by Pulse 96 92 Oximetry General appearance: Present: no acute distress, well-nourished - EENT Eyes: PERRL, EOM intact ENT: hearing intact, clear oral mucosa Ears: bilateral: normal - Neck Neck: supple, normal ROM - Respiratory Respiratory effort: normal Respiratory: bilateral: CTA - Breasts Breasts: normal - Cardiovascular Rhythm: regular Heart Sounds: Present: S1 & S2. Absent: gallop, rub Extremities: pulses intact, No edema, normal color, Full ROM - Gastrointestinal General gastrointestinal: Present: soft, non-tender, non-distended, normal bowel sounds - Genitourinary Male genitourinary: normal - Integumentary Integumentary: clear, warm, dry - Musculoskeletal Musculoskeletal: 1, strength equal bilaterally - Neurologic Neurologic: moves all extremities - Psychiatric Psychiatric: memory intact, appropriate mood/affect, intact judgment & insight - Labs CBC & Chem 7: 07/29/20 16:33 07/29/20 16:33 Labs: Abnormal lab results 07/29/20 07/30/20 07/30/20 Range/Units 20:21 07:24 11:29 POC Glucose 348 H 207 H 344 H (70-105) mg/dL 07/30/20 Range/Units 17:11 POC Glucose 291 H (70-105) mg/dL HEART Score - HEART Score Troponin: Troponin T 0.021 ng/mL (0.00-0.029) 07/27/20 21:57
[2020-07-31] MEDS: IPRATROPIUM/ALBUTEROL SULFATE 3 ML AMPUL.NEB IH SCH ×4 (01:43→08:08)
[2020-07-31] MEDS: methylPREDNISolone Sod Succinate 40 MG/1 ML INJ IV SCH ×2 (06:50→12:51)
[2020-07-31 07:49] LABS: Hematocrit 42.5 % (35.5-45.6); Hemoglobin 13.8 gm/dl (11.8-15.2); Mean Corpuscular HGB Conc 32 % (32-34); Mean Corpuscular Volume 92 fl (84-94); Platelet Count 137 K/mm3 (140-440); Red Blood Count 4.63 M/mm3 (3.65-5.03); Red Cell Distribution Width 14.2 % (13.2-15.2)
[2020-07-31 08:05] LABS: BUN/Creatinine Ratio 27; Blood Urea Nitrogen 30 mg/dL (9-20); Hemolysis Index 5
[2020-07-31 08:08] LABS: INR 1.07 (0.87-1.13)
[2020-07-31] MEDS: FAMOTIDINE 20 MG TAB PO SCH (09:59)
[2020-07-31] MEDS: INSULIN LISPRO 100 UNIT/ML VIAL 3 mL SUB-Q SCH ×3 (10:22→12:51)
[2020-07-31] MEDS ORDERED: amLODIPine 5 MG TAB PO SCH (11:00)
--- NOTE | 2020-07-31 11:23 | Discharge Summary ---
Providers - Providers Date of Admission: 07/30/20 08:12 Attending physician: BRIAN ANDRE 07/27/20 Consult to Case Management [CONS] Routine Services Needed at Discharge: Home O2 Notified:: cm notified 07/28/20 14:14 Consult to Physician [CONS] Routine Comment: Consulting Provider: HUSSAIN DOMINGUEZ Physician Instructions: Reason For Exam: Hypoxia, history of recent pneumonia. R/O COVID Primary care physician: [employer] Hospitalization Condition: Serious Exam - Constitutional Vitals: Temp Pulse Resp BP Pulse Ox 98.7 F 98 H 18 176/103 94 07/31/20 07:56 07/31/20 07:56 07/31/20 07:56 07/31/20 07:56 07/31/20 10:53 Plan Prescriptions: Albuterol Sulfate [Albuterol 0.63% NEBS] 0.63 mg IH TID PRN #1 box PRN Reason: Wheezing Ipratropium [Atrovent NEB] 0.5 mg IH Q8HRT PRN #1 box PRN Reason: Wheezing Nebulizer and Compressor [Revloc Choice Nebulizer] 1 each MC TID PRN #1 each PRN Reason: Wheezing predniSONE 10 mg PO .TAPER #48 tab Pantoprazole [Protonix TAB] 20 mg PO QDAY #30 tablet. Azithromycin [Zithromax Z-JERMAIN] 250 mg PO DAILY #6 tablet
[2020-07-31] MEDS ORDERED: hydroCHLOROthiazide 25 MG TAB PO SCH (11:25)
[2020-07-31] MEDS ORDERED: hydrALAZINE 20 MG/1 ML INJ IV PRN (11:26)
[2020-07-31 11:30] LABS: Total Cells Counted 100
[2020-07-31 11:32] LABS: Platelet Estimate Consistent w Auto; RBC Morphology Normal
[2020-07-31 12:50] VITALS: BP 163/84
== END 2020-07-31 13:37 | disposition home or self-care (01) | DRG 189 ==
LOC: ED 20:10 → 3A 23:21 → 4A 07-28 06:15 → OBSVTOIN 07-30 08:12
PROVIDERS: ADMIT Hospitalist; ATTEND Internal Medicine
DX: J96.01 Acute respiratory failure with hypoxia (principal); J44.1 Chronic obstructive pulmonary disease with (acute) exacerbation; Z20.822 Contact with and (suspected) exposure to COVID-19; E11.9 Type 2 diabetes mellitus without complications; I10 Essential (primary) hypertension; Z87.01 Personal history of pneumonia (recurrent)
CPT/HCPCS: 36415; 71046; 71275; 80048; 80053; 82728; 82947; 82962; 83615; 83880; 84145; 84484; 85007; 85025; 85379; 85610; 85730; 86140; 93005; 94640; 94760; 96361; 96374; 96375; G0378; J0692; J1815; J2920; J2930; J3370; J7040; Q9967; U0003

== ENCOUNTER 2021-02-16 09:46 | Inpatient (IN) | payer OTHER ==
--- NOTE | 2021-02-16 10:15 | Emergency Department Report ---
HPI - General Chief Complaint: Dyspnea/Respdistress Time Seen by Provider: 02/16/21 09:52 - HPI HPI: This is a 65-year-old -Tajik male who presents to the emergency department from home with complaint of a 2-week history of progressively worseni ng shortness of breath, lower extremity swelling, and a productive cough. The patient was found to have a room air pulse ox of 82% through triage. The patient has a history of COPD but only uses supplemental oxygen at night while sleeping. He also has a history of hypertension. The patient was never a tobacco smoker. He denies any illicit drug use or any alcohol use/abuse. He has not taken anything for symptoms prior to presentation today. The patient is vaccinated against COVID-19 with the 2 shots from [employer] No recent travel or sick contacts at home. No known exposure to anyone with COVID-19. The patient was seen here in July of this year for similar symptoms. ED Past Medical Hx - Past Medical History Hx Hypertension: Yes Hx Asthma: Yes Hx COPD: Yes - Social History Smoking Status: Never Smoker Substance Use Type: None - Medications Home Medications: Home Medications Medication Instructions Recorded Confirmed Last Taken Type Albuterol Sulfate [Albuterol 0.63% 0.63 mg IH TID PRN #1 box 07/31/20 Unknown Rx NEBS] Azithromycin [Zithromax Z-JERMAIN] 250 mg PO DAILY #6 tablet 07/31/20 Unknown Rx Ipratropium [Atrovent NEB] 0.5 mg IH Q8HRT PRN #1 box 07/31/20 Unknown Rx Nebulizer and Compressor [[place] 1 each MC TID PRN #1 each 07/31/20 Unknown Rx Choice Nebulizer] Pantoprazole [Protonix TAB] 20 mg PO QDAY #30 tablet. 07/31/20 Unknown Rx amLODIPine 10 mg PO DAILY #30 tab 07/31/20 Unknown Rx hydroCHLOROthiazide [HCTZ] 25 mg PO QDAY #30 tablet 07/31/20 Unknown Rx predniSONE 10 mg PO .TAPER #48 tab 07/31/20 Unknown Rx ED Review of Systems ROS: Stated complaint: SOB Other details as noted in HPI Comment: All other systems reviewed and negative Constitutional: denies: chills, fever Eyes: denies: eye pain, vision change ENT: denies: ear pain, throat pain Respiratory: cough, shortness of breath Cardiovascular: edema. denies: chest pain Gastrointestinal: denies: abdominal pain, vomiting Genitourinary: denies: dysuria, discharge Musculoskeletal: denies: back pain, arthralgia Skin: denies: rash, lesions Neurological: denies: headache, weakness Physical Exam - Physical Exam Vital Signs: Vital Signs 02/16/21 09:51 Temperature 98.9 F Pulse Rate 114 H Respiratory 22 Rate Blood Pressure 137/72 [Right] O2 Sat by Pulse 84 Oximetry Physical Exam: GENERAL: The patient is well-developed well-nourished. HENT: Normocephalic. Atraumatic. Patient has moist mucous membranes. EYES: Extraocular motions are intact. NECK: Supple. Trachea is midline. CHEST/LUNGS: Moderate wheezing throughout the chest. There is some tachypnea but no accessory muscle use. HEART/CARDIOVASCULAR: Regular. There is mild to moderate tachycardia. There is no murmur. ABDOMEN: Abdomen is soft, nontender. Patient has normal bowel sounds. SKIN: 2+ pitting edema to the bilateral lower extremities. NEURO: The patient is awake, alert, and oriented. The patient is cooperative. The patient has no focal neurologic deficits. Normal speech. MUSCULOSKELETAL: There is no tenderness or deformity. There is no limitation range of motion. ED Course Vital Signs 02/16/21 09:51 Temperature 98.9 F Pulse Rate 114 H Respiratory 22 Rate Blood Pressure 137/72 [Right] O2 Sat by Pulse 84 Oximetry ED Medical Decision Making - Lab Data Result diagrams: 02/16/21 10:14 02/16/21 10:14 Lab Results 02/16/21 02/16/21 02/16/21 Range/Units 10:14 10:14 10:14 WBC 7.3 (4.5-11.0) K/mm3 RBC 4.83 (3.65-5.03) M/mm3 Hgb 14.7 (11.8-15.2) gm/dl Hct 44.5 (35.5-45.6) % MCV 92 (84-94) fl MCH 30 (28-32) pg MCHC 33 (32-34) % RDW 14.1 (13.2-15.2) % Plt Count 130 L (140-440) K/mm3 Lymph % (Auto) 12.7 L (13.4-35.0) % [place] % (Auto) 15.7 H (0.0-7.3) % Eos % (Auto) 4.0 (0.0-4.3) % Baso % (Auto) Cycle Analyst Lymph # (Auto) 0.9 L (1.2-5.4) K/mm3 [place] # (Auto) 1.2 H (0.0-0.8) K/mm3 Eos # (Auto) 0.3 (0.0-0.4) K/mm3 Baso # (Auto) 0.0 (0.0-0.1) K/mm3 Seg Neutrophils % 66.9 (40.0-70.0) % Seg Neutrophils # 4.9 (1.8-7.7) K/mm3 D-Dimer 622.92 H (0-234) ng/mlDDU Sodium 143 (137-145) mmol/L Potassium 4.3 (3.6-5.0) mmol/L Chloride 103.3 (98-107) mmol/L Carbon Dioxide 34 H (22-30) mmol/L Anion Gap 10 mmol/L BUN 26 H (9-20) mg/dL Creatinine 1.1 (0.8-1.3) mg/dL Estimated GFR > 60 ml/min BUN/Creatinine Ratio 24 % Glucose 108 H (75-100) mg/dL Calcium 9.4 (8.4-10.2) mg/dL Ferritin (30.0-300.0) ng/mL Total Bilirubin 0.50 (0.1-1.2) mg/dL AST 30 (5-40) units/L ALT 29 (7-56) units/L Alkaline Phosphatase 69 (35-129) units/L Lactate Dehydrogenase (91-180) units/L Troponin T 0.070 H (0.00-0.029) ng/mL C-Reactive Protein (0.00-1.30) mg/dL NT-Pro-B Natriuret Pep 9.19 (0-900) pg/mL Total Protein 7.0 (6.3-8.2) g/dL Albumin 3.9 (3.9-5) g/dL Albumin/Globulin Ratio 1.3 % Triglycerides 266 H (2-149) mg/dL Cholesterol 124 (50-199) mg/dL LDL Cholesterol Direct 57 (50-130) mg/dL HDL Cholesterol 49 (40-59) mg/dL Cholesterol/HDL Ratio 2.53 % 02/16/21 02/16/21 Range/Units 13:06 13:06 WBC (4.5-11.0) K/mm3 RBC (3.65-5.03) M/mm3 Hgb (11.8-15.2) gm/dl Hct (35.5-45.6) % MCV (84-94) fl MCH (28-32) pg MCHC (32-34) % RDW (13.2-15.2) % Plt Count (140-440) K/mm3 Lymph % (Auto) (13.4-35.0) % [place] % (Auto) (0.0-7.3) % Eos % (Auto) (0.0-4.3) % Baso % (Auto) Lymph # (Auto) (1.2-5.4) K/mm3 [place] # (Auto) (0.0-0.8) K/mm3 Eos # (Auto) (0.0-0.4) K/mm3 Baso # (Auto) (0.0-0.1) K/mm3 Seg Neutrophils % (40.0-70.0) % Seg Neutrophils # (1.8-7.7) K/mm3 D-Dimer (0-234) ng/mlDDU Sodium (137-145) mmol/L Potassium (3.6-5.0) mmol/L Chloride (98-107) mmol/L Carbon Dioxide (22-30) mmol/L Anion Gap mmol/L BUN (9-20) mg/dL Creatinine (0.8-1.3) mg/dL Estimated GFR ml/min BUN/Creatinine Ratio % Glucose (75-100) mg/dL Calcium (8.4-10.2) mg/dL Ferritin 68.2 (30.0-300.0) ng/mL Total Bilirubin (0.1-1.2) mg/dL AST (5-40) units/L ALT (7-56) units/L Alkaline Phosphatase (35-129) units/L Lactate Dehydrogenase 239 H (91-180) units/L Troponin T (0.00-0.029) ng/mL C-Reactive Protein 0.50 (0.00-1.30) mg/dL NT-Pro-B Natriuret Pep (0-900) pg/mL Total Protein (6.3-8.2) g/dL Albumin (3.9-5) g/dL Albumin/Globulin Ratio % Triglycerides (2-149) mg/dL Cholesterol (50-199) mg/dL LDL Cholesterol Direct (50-130) mg/dL HDL Cholesterol (40-59) mg/dL Cholesterol/HDL Ratio % - EKG Data -: EKG Interpreted by Me EKG shows normal: sinus rhythm, axis, intervals, QRS complexes (Septal Q waves), ST-T waves Rate: normal - EKG Data When compared to previous EKG there are: no significant change Interpretation: unchanged when compared t (07/28/20) - Radiology Data Radiology results: image reviewed interpreted by me: Chest x-ray does not show any acute process. There are no pleural effusions, obvious pneumonia and there is no pneumothorax. No widened mediastinum. - Medical Decision Making This patient presents to the emergency department with a 2-week history of progressively worsening shortness of breath, wheezing, coughing and lower extremity swelling. The patient was found to have a room air pulse ox of 84%. He is only oxygen dependent at night. Chest x-ray does not show any pneumonia, pleural effusions, pneumothorax, widened mediastinum, or any other acute process. EKG does not have any morphology consistent with ST elevation myocardial infarction and is unchanged from previous. Patient's labs shows elevated D-dimer level, elevated troponin, elevated CO2 and elevated LDH. The patient was vaccinated against COVID-19, but with the shortness of breath and hypoxia the patient was placed on droplet precautions and in isolation and was made a PUI. He will have a CT angiography of the chest due to the elevated D-dimer level and hypoxia. The patient will be admitted to the hospital for further evaluation and treatment was accepted for admission by the hospitalist, Dr. Lezama. Critical Care Time: Yes Critical care time in (mins) excluding proc time.: 31 Critical care attestation.: If time is entered above; I have spent that time in minutes in the direct care of this critically ill patient, excluding procedure time. Critical care time was spent on this patient during his initial evaluation, multiple reevaluations, ordering and interpretation of labs and imaging, supplemental oxygen for his hypoxia, Solu-Medrol and breathing treatments for his bronchospasm, multiple discussions with the patient. Critical Care Time: 31 minutes ED Disposition Clinical Impression: COPD exacerbation, Hypoxia, Suspected 2019 novel coronavirus infection Disposition: OP ADMIT IP TO THIS HOSP Is pt being admited?: Yes Condition: Serious Instructions: Chronic Obstructive Pulmonary Disease (ED) Time of Disposition: 14:35
[2021-02-16] MEDS ORDERED: methylPREDNISolone Sod Succinate 125 MG/2 ML INJ IV ONE (10:20)
[2021-02-16 10:54] LABS: Alanine Aminotransferase 29 units/L (7-56); Albumin 3.9 g/dL (3.9-5); BUN/Creatinine Ratio 24; Blood Urea Nitrogen 26 mg/dL (9-20); Calcium 9.4 mg/dL (8.4-10.2); Hemolysis Index 18
[2021-02-16] MEDS: IPRATROPIUM/ALBUTEROL SULFATE 3 ML AMPUL.NEB IH ONE ×2 (10:54→13:09)
[2021-02-16 11:05] LABS: HDL Cholesterol 49 mg/dL (40-59); LDL Cholesterol,Direct 57 mg/dL (50-130)
--- NOTE | 2021-02-16 11:31 | XRay Report ---
CHEST 1 VIEW INDICATION: SOB. COMPARISON: 07/27/2020 FINDINGS: Support devices: None. Heart: Within normal limits. Lungs/Pleura: There is poor inspiration with mild bibasilar atelectatic changes. No convincing pneumo chin, pleural effusion or pneumothorax. Additional findings: None. IMPRESSION: No acute findings. Poor inspiration with mild bibasilar atelectatic changes. Signer Name: Emory Gonzalez Jr, MD Signed: 02/16/2021 11:27 AM Workstation Name: [id number]
[2021-02-16 11:32] LABS: Eosinophils # (Auto) 0.3 K/mm3 (0.0-0.4); Hematocrit 44.5 % (35.5-45.6); Hemoglobin 14.7 gm/dl (11.8-15.2); Lymphocytes # (Auto) 0.9 K/mm3 (1.2-5.4); Lymphocytes % (Auto) 12.7 % (13.4-35.0); Mean Corpuscular HGB Conc 33 % (32-34); Mean Corpuscular Volume 92 fl (84-94); Monocytes # (Auto) 1.2 K/mm3 (0.0-0.8); Monocytes % (Auto) 15.7 % (0.0-7.3); Platelet Count 130 K/mm3 (140-440); Red Blood Count 4.83 M/mm3 (3.65-5.03); Red Cell Distribution Width 14.1 % (13.2-15.2)
[2021-02-16] MEDS ORDERED: ALBUTEROL 2.5 MG/3 ML NEBU IH ONE (11:44)
[2021-02-16 12:03] LABS: Chol/HDL Ratio 2.53 %
--- NOTE | 2021-02-16 12:23 | History and Physical Report ---
History of Present Illness Chief complaint: I cannot breathe History of present illness: 65 YO Male with Obesity Hypoventilation Syndrome, Mild Intermittent Asthma, COPD, GERD presents to ED for evaluation. Patient reports "I cannot breathe". Patient states that he has experienced shortness of breath over the past 2 weeks with progressively worsening symptoms over the same timeframe. Patient knowledges malaise, fatigue, shortness of breath, muscle aches. Patient transported to [facility] via private vehicle for further care and evaluation of the aforementioned symptoms. The patient was seen and evaluated in the emergency department. All lab and imaging studies reviewed. The patient was found to have a pulse oximetry of 82% on room air which is consistent with acute hypoxemic respiratory failure. Patient admitted to medical floor due to increased risk of worsening symptoms. Patient initiated on coronavirus protocol. Patient denies fever, chills, chest pain, palpitation, skin rash, recent ill contacts, or known exposure to COVID-19. Prior admission on 07/30/2020 reviewed. All medication listed at time of admission has been reconciled. Advanced care planning conducted in ED. The patient is vaccinated against COVID-19 with the 2 shots from [employer]. Past History Past Medical History: COPD, GERD, other (See HPI) Past Surgical History: No surgical history, Other (Reviewed) Social history: . denies: smoking, alcohol abuse, prescription drug abuse Family history: diabetes, hypertension Medications and Allergies Allergies Allergy/AdvReac Type Severity Reaction Status Date / Time No Known Allergies Allergy Verified 02/16/21 09:46 Home Medications Medication Instructions Recorded Confirmed Last Taken Type Albuterol Sulfate [Albuterol 0.63% 0.63 mg IH TID PRN #1 box 07/31/20 Unknown Rx NEBS] Azithromycin [Zithromax Z-JERMAIN] 250 mg PO DAILY #6 tablet 07/31/20 Unknown Rx Ipratropium [Atrovent NEB] 0.5 mg IH Q8HRT PRN #1 box 07/31/20 Unknown Rx Nebulizer and Compressor [[place] 1 each MC TID PRN #1 each 07/31/20 Unknown Rx Choice Nebulizer] Pantoprazole [Protonix TAB] 20 mg PO QDAY #30 tablet. 07/31/20 Unknown Rx amLODIPine 10 mg PO DAILY #30 tab 07/31/20 Unknown Rx hydroCHLOROthiazide [HCTZ] 25 mg PO QDAY #30 tablet 07/31/20 Unknown Rx predniSONE 10 mg PO .TAPER #48 tab 07/31/20 Unknown Rx Review of Systems Constitutional: fatigue, weakness, malaise, no weight loss, no weight gain, no chills, no sweats Ears, nose, mouth and throat: no ear pain, no tinnitis, no decreased hearing, no nasal congestion, no nasal discharge Cardiovascular: shortness of breath, no chest pain, no orthopnea, no rapid/irregular heart beat Respiratory: cough, shortness of breath Gastrointestinal: no abdominal pain, no nausea, no vomiting, no constipation, no change in bowel habits Genitourinary Male: no hematuria, no flank pain, no discharge, no urinary frequency, no nocturia Rectal: no pain, no incontinence, no bleeding Musculoskeletal: no neck stiffness, no shooting arm pain, no arm numbness/tingling, no low back pain Integumentary: no rash, no pruritis, no sores, no wounds, no jaundice Neurological: no head injury, no paralysis, no parathesias, no tingling Psychiatric: no anxiety, no sleep disturbances, no insomnia, no change in appetite, no suicidal ideation Endocrine: no heat intolerance, no polyphagia, no excessive thirst, no polyuria Hematologic/Lymphatic: no easy bruising, no easy bleeding, no lymphadenopathy Allergic/Immunologic: no allergic rhinitis, no wheezing, no anaphylaxis Exam - Constitutional Vitals: Temp Pulse Resp BP Pulse Ox 98.9 F 102 H 22 137/72 84 02/16/21 09:51 02/16/21 10:54 02/16/21 10:54 02/16/21 09:51 02/16/21 09:51 General appearance: Present: mild distress, obese - EENT Eyes: Present: PERRL ENT: hearing intact, clear oral mucosa - Neck Neck: Present: supple, normal ROM - Respiratory Respiratory effort: normal, labored, stridor Respiratory: bilateral: diminished, rhonchi - Cardiovascular Heart Sounds: Present: S1 & S2. Absent: rub, click - Extremities Extremities: pulses symmetrical, No edema Peripheral Pulses: within normal limits - Abdominal General gastrointestinal: Present: soft, non-tender, non-distended, normal bowel sounds Male genitourinary: Present: normal - Integumentary Integumentary: Present: clear, warm, dry - Musculoskeletal Musculoskeletal: gait normal, strength equal bilaterally - Psychiatric Psychiatric: appropriate mood/affect, intact judgment & insight - Neurologic Neurologic: CNII-XII intact, moves all extremities HEART Score - HEART Score Troponin: Troponin T 0.070 ng/mL (0.00-0.029) H 02/16/21 10:14 Results - Labs CBC & Chem 7: 02/16/21 10:14 02/16/21 10:14 Labs: Abnormal lab results 02/16/21 02/16/21 02/16/21 Range/Units 10:14 10:14 10:14 Plt Count 130 L (140-440) K/mm3 Lymph % (Auto) 12.7 L (13.4-35.0) % Wheeler % (Auto) 15.7 H (0.0-7.3) % Lymph # (Auto) 0.9 L (1.2-5.4) K/mm3 Wheeler # (Auto) 1.2 H (0.0-0.8) K/mm3 D-Dimer 622.92 H (0-234) ng/mlDDU Carbon Dioxide 34 H (22-30) mmol/L BUN 26 H (9-20) mg/dL Glucose 108 H (75-100) mg/dL Troponin T 0.070 H (0.00-0.029) ng/mL Triglycerides 266 H (2-149) mg/dL Assessment and Plan - Patient Problems (1) Acute hypoxemic respiratory failure Current Visit: Yes Status: Acute Plan to address problem: Supplemental oxygen, pulse oximetry, nebulizer therapy, chest x-ray, arterial blood gas, (2) GERD (gastroesophageal reflux disease) Current Visit: Yes Status: Acute Qualifiers: Esophagitis presence: without esophagitis Qualified Code(s): K21.9 - Gastro-esophageal reflux disease without esophagitis Plan to address problem: PPI therapy, supportive care (3) Acute bronchitis Current Visit: Yes Status: Acute Plan to address problem: Suspected secondary to coronavirus infection. IV steroid therapy, supportive care, supplemental oxygen, pulse oximetry. (4) DVT prophylaxis Current Visit: Yes Status: Acute (5) Suspected 2019 novel coronavirus infection Current Visit: Yes Status: Acute Plan to address problem: Coronavirus protocol: IV antibiotic therapy, IV steroid therapy, nebulizer therapy, pulse oximetry, vitamin C therapy, vitamin D therapy, zinc therapy, prophylactic anticoagulation. (6) COPD exacerbation Current Visit: Yes Status: Acute Plan to address problem: Supplemental oxygen, pulse oximetry, nebulizer therapy, IV steroid therapy, supportive care. (7) Obesity hypoventilation syndrome Current Visit: Yes Status: Acute Plan to address problem: Balanced diet, increase physical activity at discharge, outpatient pulmonary fo llow-up for sleep study. (8) DVT prophylaxis Current Visit: Yes Status: Acute Plan to address problem: SCD to bilateral lower extremities while in bed, prophylactic anticoagulation (9) Advance care planning Current Visit: Yes Status: Acute Plan to address problem: Disease education conducted, care plan discussed, diagnosis discussed, prognosis discussed, patient knowledges understanding and agreement with care plan, +30 minutes. Patient is full code
[2021-02-16] MEDS ORDERED: ALBUTEROL 2.5 MG/3 ML NEBU IH PRN ×2 (12:24→20:39)
[2021-02-16] MEDS ORDERED: ONDANSETRON 4 MG/2 ML INJ IV PRN ×2 (12:24→20:39)
[2021-02-16] MEDS ORDERED: ACETAMINOPHEN 325 MG TAB PO PRN ×2 (12:24→20:39)
[2021-02-16 13:50] LABS: C-Reactive Protein 0.5 mg/dL (0.00-1.30)
--- NOTE | 2021-02-16 16:06 | Cat Scan Report ---
CTA CHEST WITH IV CONTRAST INDICATION: SOB, hypoxia, elevated D dimer. TECHNIQUE: Axial CT images were obtained through the chest after injection of 100 cc Omnipaque 350 IV contrast. 3 plane MIP reconstructions were produced. All CT scans at this location are performed using CT dose reduction for ALARA by means of automated exposure control. COMPARISON: One view of the chest performed today. FINDINGS: Motion artifact limits this study. PULMONARY ARTERIES: No pulmonary emboli. AORTA AND ARTERIES: The aorta is normal in caliber without significant atherosclerosis. No other sign ificant abnormality. HEART: No significant abnormality. MEDIASTINUM: A nonspecific mildly enlarged metastatic lymph node is seen to the left of midline at th e level of the pulmonary trunk on image 52 of series 2. No other significant adenopathy or mass. No s ignificant abnormality of the trachea or main bronchi. LUNGS: There is bibasilar atelectasis with a trace left pleural effusion. No pneumothorax or other si gnificant abnormality. ADDITIONAL FINDINGS: None. UPPER ABDOMEN: No acute findings. BONES: Mild degenerative changes are seen along the spine without acute findings. IMPRESSION: 1. No CT evidence for pulmonary embolism. 2. Bibasilar atelectasis with a trace left pleural effusion. Signer Name: Dylan Russ MD Signed: 02/16/2021 4:02 PM Workstation Name: [id number]
[2021-02-16] MEDS ORDERED: HYDROmorphone 1 MG/1 ML INJ IV PRN (20:39)
[2021-02-16] MEDS ORDERED: oxyCODONE /ACETAMINOPHEN 5-325MG TAB PO PRN (20:39)
[2021-02-16] MEDS: FAMOTIDINE 10 MG TAB PO SCH (22:25)
[2021-02-16] MEDS: methylPREDNISolone Sod Succinate 40 MG/1 ML INJ IV SCH (22:25)
[2021-02-16] MEDS: ASCORBIC ACID 500 MG TAB PO SCH (22:26)
[2021-02-16] MEDS: ZINC SULFATE 220 MG CAP PO SCH (22:35)
[2021-02-16] MEDS: HEPARIN 5,000 UNIT/1 ML VIAL SUB-Q SCH (22:57)
[2021-02-17] MEDS: methylPREDNISolone Sod Succinate 40 MG/1 ML INJ IV SCH ×3 (09:27→22:43)
[2021-02-17] MEDS: HEPARIN 5,000 UNIT/1 ML VIAL SUB-Q SCH ×2 (10:43→22:43)
--- NOTE | 2021-02-17 11:03 | Electrocardiograph Report ---
[facility] Test Date: 2021-02-16 Test Time: 09:53:13 Pat Name: KAITLIN RUFFIN Department: Room: [facility] Gender: M Manager Java: ENEIDA : 1955 Requested By: PAM GILBERT Order Number: [id number] Reading MD: Shamar Arreola Measurements Intervals [place] Rate: 104 P: 87 IN: 157 QRS: 85 QRSD: 81 T: 19 QT: 333 QTc: 439 Interpretive Statements Sinus tachycardia Probable left atrial enlargement Anterior ST elevation, consider early repolarization of acute injury No previous ECG available for comparison Electronically Signed On 02-17-2021 11:03:13 EDT by Shamar Arreola
[2021-02-17 11:27] LABS: Basophils % (Auto) 0.3 % (0.0-1.8); Hematocrit 51.6 % (35.5-45.6); Hemoglobin 16.6 gm/dl (11.8-15.2); Lymphocytes # (Auto) 0.5 K/mm3 (1.2-5.4); Lymphocytes % (Auto) 3.9 % (13.4-35.0); Mean Corpuscular HGB Conc 32 % (32-34); Mean Corpuscular Volume 93 fl (84-94); Monocytes # (Auto) 0.9 K/mm3 (0.0-0.8); Monocytes % (Auto) 6.1 % (0.0-7.3); Red Blood Count 5.55 M/mm3 (3.65-5.03); Red Cell Distribution Width 14.2 % (13.2-15.2)
[2021-02-17 11:30] LABS: Platelet Count 86 K/mm3 (140-440)
[2021-02-17] MEDS: CHOLECALCIFEROL (VIT D3) 1000 UNIT (25 mcg) TAB PO SCH (11:38)
[2021-02-17] MEDS: FAMOTIDINE 10 MG TAB PO SCH ×2 (11:38→22:43)
[2021-02-17] MEDS: ZINC SULFATE 220 MG CAP PO SCH (11:38)
[2021-02-17] MEDS: ASCORBIC ACID 500 MG TAB PO SCH ×2 (11:38→22:43)
[2021-02-17 12:00] LABS: Alanine Aminotransferase 32 units/L (7-56); BUN/Creatinine Ratio 36; Blood Urea Nitrogen 32 mg/dL (9-20); Hemolysis Index 137
--- NOTE | 2021-02-17 15:07 | History and Physical Report ---
History of Present Illness Date of examination: 02/17/21 Date of admission: 02/16/21 20:39 History of present illness: 65 YO Male with Obesity Hypoventilation Syndrome, Mild Intermittent Asthma, COPD, GERD presents to ED for evaluation. Patient reports "I cannot breathe". Patient states that he has experienced shortness of breath over the past 2 weeks with progressively worsening symptoms over the same timeframe. Patient knowledges malaise, fatigue, shortness of breath, muscle aches. Patient transported to [facility] via private vehicle for further care and evaluation of the aforementioned symptoms. The patient was seen and evaluated in the emergency department. All lab and imaging studies reviewed. The patient was found to have a pulse oximetry of 82% on room air which is consistent with acute hypoxemic respiratory failure. Patient admitted to medical floor due to increased risk of worsening symptoms. Patient initiated on coronavirus protocol. Patient denies fever, chills, chest pain, palpitation, skin rash, recent ill contacts, or known exposure to COVID-19. Prior admission on 07/30/2020 reviewed. All medication listed at time of admission has been reconciled. Advanced care planning conducted in ED. The patient is vaccinated against COVID-19 with the 2 shots from [employer]. Past History Past Medical History: COPD, GERD, other (See HPI) Past Surgical History: No surgical history, Other (Reviewed) Social history: . denies: smoking, alcohol abuse, prescription drug abuse Family history: diabetes, hypertension Medications and Allergies Allergies Allergy/AdvReac Type Severity Reaction Status Date / Time No Known Allergies Allergy Verified 02/16/21 09:46 Home Medications Medication Instructions Recorded Confirmed Last Taken Type Albuterol Sulfate [Albuterol 0.63% 0.63 mg IH TID PRN #1 box 07/31/20 Unknown Rx NEBS] Azithromycin [Zithromax Z-JERMAIN] 250 mg PO DAILY #6 tablet 07/31/20 Unknown Rx Ipratropium [Atrovent NEB] 0.5 mg IH Q8HRT PRN #1 box 07/31/20 Unknown Rx Nebulizer and Compressor [[place] 1 each MC TID PRN #1 each 07/31/20 Unknown Rx Choice Nebulizer] Pantoprazole [Protonix TAB] 20 mg PO QDAY #30 07/31/20 Unknown Rx amLODIPine 10 mg PO DAILY #30 tab 07/31/20 02/17/21 Unknown Rx hydroCHLOROthiazide [HCTZ] 25 mg PO QDAY #30 tablet 07/31/20 Unknown Rx predniSONE 10 mg PO .TAPER #48 tab 07/31/20 Unknown Rx glipiZIDE [Glucotrol] 5 mg PO BID 02/17/21 02/17/21 Unknown History Active Meds: Active Medications Acetaminophen (Acetaminophen 325 Mg Tab) 650 mg PO Q4H PRN PRN Reason: Pain MILD(1-3)/Fever >100.5/TYLER Albuterol (Albuterol 2.5 Mg/3 Ml Nebu) 2.5 mg IH Q4HRT PRN PRN Reason: Shortness Of Breath Ascorbic Acid (Ascorbic Acid 500 Mg Tab) 500 mg PO BID [facility] Last Admin: 02/17/21 11:38 Dose: 500 mg Documented by: Cholecalciferol (Cholecalciferol (Vit D3) 1000 Unit (25 Mcg) Tab) 1,000 unit PO QDAY [facility] Last Admin: 02/17/21 11:38 Dose: 1,000 unit Documented by: Famotidine (Famotidine 10 Mg Tab) 10 mg PO BID [facility] Last Admin: 02/17/21 11:38 Dose: 10 mg Documented by: Heparin Sodium (Porcine) (Heparin 5,000 Unit/1 Ml Vial) 5,000 unit SUB-Q Q12HR [facility] Last Admin: 02/17/21 10:43 Dose: 5,000 unit Documented by: Hydromorphone HCl (Hydromorphone 1 Mg/1 Ml Inj) 0.5 mg IV Q12H PRN PRN Reason: Pain , Severe (7-10) Methylprednisolone Sodium Succinate (Methylprednisolone Sod Succinate 40 Mg/1 Ml Inj) 40 mg IV Q8HR [facility] Last Admin: 02/17/21 13:34 Dose: 40 mg Documented by: Ondansetron HCl (Ondansetron 4 Mg/2 Ml Inj) 4 mg IV Q8H PRN PRN Reason: Nausea And Vomiting Oxycodone/Acetaminophen (Oxycodone /Acetaminophen 5-325mg Tab) 1 tab PO Q12H PRN PRN Reason: Pain, Moderate (4-6) Sodium Chloride (Sodium Chloride 0.9% 10 Ml Flush Syringe) 10 ml IV BID [facility] Last Admin: 02/17/21 11:39 Dose: 10 ml Documented by: Sodium Chloride (Sodium Chloride 0.9% 10 Ml Flush Syringe) 10 ml IV PRN PRN PRN Reason: LINE FLUSH Zinc Sulfate (Zinc Sulfate 220 Mg Cap) 220 mg PO BID NANO Last Admin: 02/17/21 11:38 Dose: 220 mg Documented by: Exam - Constitutional Vitals: Temp Pulse Resp BP Pulse Ox 97.6 F 88 19 118/79 94 02/17/21 11:57 02/17/21 11:54 02/17/21 11:54 02/17/21 12:01 02/17/21 12:01 HEART Score - HEART Score Troponin: Troponin T 0.070 ng/mL (0.00-0.029) H 02/16/21 10:14 Results - Labs CBC & Chem 7: 02/17/21 11:16 02/17/21 11:16 Labs: Laboratory Last Values WBC 14.0 K/mm3 (4.5-11.0) H 02/17/21 11:16 RBC 5.55 M/mm3 (3.65-5.03) H 02/17/21 11:16 Hgb 16.6 gm/dl (11.8-15.2) H 02/17/21 11:16 Hct 51.6 % (35.5-45.6) H D 02/17/21 11:16 MCV 93 fl (84-94) 02/17/21 11:16 MCH 30 pg (28-32) 02/17/21 11:16 MCHC 32 % (32-34) 02/17/21 11:16 RDW 14.2 % (13.2-15.2) 02/17/21 11:16 Plt Count 86 K/mm3 (140-440) L 02/17/21 11:16 Lymph % (Auto) 3.9 % (13.4-35.0) L 02/17/21 11:16 [place] % (Auto) 6.1 % (0.0-7.3) 02/17/21 11:16 Eos % (Auto) 0.0 % (0.0-4.3) 02/17/21 11:16 Baso % (Auto) 0.3 % (0.0-1.8) 02/17/21 11:16 Lymph # (Auto) 0.5 K/mm3 (1.2-5.4) L 02/17/21 11:16 [place] # (Auto) 0.9 K/mm3 (0.0-0.8) H 02/17/21 11:16 Eos # (Auto) 0.0 K/mm3 (0.0-0.4) 02/17/21 11:16 Baso # (Auto) 0.0 K/mm3 (0.0-0.1) 02/17/21 11:16 Seg Neutrophils % 89.7 % (40.0-70.0) H 02/17/21 11:16 Seg Neutrophils # 12.5 K/mm3 (1.8-7.7) H 02/17/21 11:16 D-Dimer 622.92 ng/mlDDU (0-234) H 02/16/21 10:14 ABG pH 7.245 (7.320-7.450) L 02/16/21 17:57 POC ABG pCO2 64.8 mmHg (32.0-48.0) H 02/16/21 17:57 POC ABG pO2 72.1 mmHg (83-108) L 02/16/21 17:57 POC ABG HCO3 27.5 02/16/21 17:57 ABG O2 Saturation 93.8 (0-100) 02/16/21 17:57 POC ABG Base Excess -1.6 02/16/21 17:57 ABG Hemoglobin 15.7 (12.0-17.5) 02/16/21 17:57 ABG Oxyhemoglobin 92.3 (94-98) L 02/16/21 17:57 ABG Methemoglobin 0.2 (0.0-1.5) 02/16/21 17:57 ABG Sodium 138.4 mmol/L (136.0-145.0) 02/16/21 17:57 ABG Potassium 4.8 mmol/L (3.40-4.50) H 02/16/21 17:57 ABG Chloride 98.0 mmol/L (98-107) 02/16/21 17:57 ABG Glucose 227 mg/dL (65-95) H 02/16/21 17:57 Carboxyhemoglobin 1.4 (0.5-1.5) 02/16/21 17:57 FiO2 % 28.0 02/16/21 17:57 Sodium 134 mmol/L (137-145) L D 02/17/21 11:16 Potassium 5.3 mmol/L (3.6-5.0) H D 02/17/21 11:16 Chloride 100.5 mmol/L (98-107) 02/17/21 11:16 Carbon Dioxide 22 mmol/L (22-30) D 02/17/21 11:16 Anion Gap 17 mmol/L 02/17/21 11:16 BUN 32 mg/dL (9-20) H 02/17/21 11:16 Creatinine 0.9 mg/dL (0.8-1.3) 02/17/21 11:16 Estimated GFR > 60 ml/min 02/17/21 11:16 BUN/Creatinine Ratio 36 % 02/17/21 11:16 Glucose 178 mg/dL (75-100) H 02/17/21 11:16 Calcium 9.0 mg/dL (8.4-10.2) 02/17/21 11:16 Ferritin 68.2 ng/mL (30.0-300.0) 02/16/21 13:06 Total Bilirubin 0.50 mg/dL (0.1-1.2) 02/17/21 11:16 AST 40 units/L (5-40) 02/17/21 11:16 ALT 32 units/L (7-56) 02/17/21 11:16 Alkaline Phosphatase 72 units/L (35-129) 02/17/21 11:16 Lactate Dehydrogenase 239 units/L (91-180) H 02/16/21 13:06 Troponin T 0.070 ng/mL (0.00-0.029) H 02/16/21 10:14 C-Reactive Protein 0.50 mg/dL (0.00-1.30) 02/16/21 13:06 NT-Pro-B Natriuret Pep 9.19 pg/mL (0-900) 02/16/21 10:14 Total Protein 7.9 g/dL (6.3-8.2) 02/17/21 11:16 Albumin 4.0 g/dL (3.9-5) 02/17/21 11:16 Albumin/Globulin Ratio 1.0 % 02/17/21 11:16 Triglycerides 266 mg/dL (2-149) H 02/16/21 10:14 Cholesterol 124 mg/dL (50-199) 02/16/21 10:14 LDL Cholesterol Direct 57 mg/dL (50-130) 02/16/21 10:14 HDL Cholesterol 49 mg/dL (40-59) 02/16/21 10:14 Cholesterol/HDL Ratio 2.53 % 02/16/21 10:14 Procalcitonin < 0.05 ng/mL (<0.15) 02/16/21 13:06 Arterial Blood Glucose 227 mg/dL (65-95) H 02/16/21 17:57 Coronavirus (PCR) Negative (Negative) 02/16/21 08:07 Assessment and Plan Assessment and plan: Assessment and Plan - Patient Problems (1) Acute hypoxemic respiratory failure Current Visit: Yes Status: Acute Plan to address problem: Supplemental oxygen, pulse oximetry, nebulizer therapy, chest x-ray, arterial blood gas, (2) GERD (gastroesophageal reflux disease) Current Visit: Yes Status: Acute Qualifiers: Esophagitis presence: without esophagitis Qualified Code(s): K21.9 - Gastro-esophageal reflux disease without esophagitis Plan to address problem: PPI therapy, supportive care (3) Acute bronchitis Current Visit: Yes Status: Acute Plan to address problem: Suspected secondary to coronavirus infection. IV steroid therapy, supportive care, supplemental oxygen, pulse oximetry. (4) DVT prophylaxis Current Visit: Yes Status: Acute (5) Suspected 2019 novel coronavirus infection Current Visit: Yes Status: Acute Plan to address problem: Coronavirus protocol: IV antibiotic therapy, IV steroid therapy, nebulizer therapy, pulse oximetry, vitamin C therapy, vitamin D therapy, zinc therapy, prophylactic anticoagulation. (6) COPD exacerbation Current Visit: Yes Status: Acute Plan to address problem: Supplemental oxygen, pulse oximetry, nebulizer therapy, IV steroid therapy, supportive care. (7) Obesity hypoventilation syndrome Current Visit: Yes Status: Acute Plan to address problem: Balanced diet, increase physical activity at discharge, outpatient pulmonary follow-up for sleep study. (8) DVT prophylaxis Current Visit: Yes Status: Acute Plan to address problem: SCD to bilateral lower extremities while in bed, prophylactic anticoagulation (9) Advance care planning Current Visit: Yes Status: Acute Plan to address problem: Disease education conducted, care plan discussed, diagnosis discussed, prognosis discussed, patient knowledges understanding and agreement with care plan, +30 minutes. Patient is full code
[2021-02-18] MEDS: ZINC SULFATE 220 MG CAP PO SCH ×3 (00:04→22:34)
[2021-02-18] MEDS: INSULIN LISPRO 100 UNIT/ML SUB-Q SCH ×5 (00:05→22:39)
[2021-02-18] MEDS: methylPREDNISolone Sod Succinate 40 MG/1 ML INJ IV SCH ×3 (05:11→22:38)
--- NOTE | 2021-02-18 07:21 | Progress Note ---
Assessment and Plan Assessment and Plan - Patient Problems (1) Acute hypoxemic respiratory failure Current Visit: Yes Status: Acute Plan to address problem: Continue oxygen nebulizer treatments IV antibiotics and Solu-Medrol (2) GERD (gastroesophageal reflux disease) Current Visit: Yes Status: Acute Qualifiers: Esophagitis presence: without esophagitis Qualified Code(s): K21.9 - Gastro-esophageal reflux disease without esophagitis Plan to address problem: PPI therapy, supportive care (3) Acute bronchitis Current Visit: Yes Status: Acute Plan to address problem: Suspected secondary to coronavirus infection. IV steroid therapy, supportive care, supplemental oxygen, pulse oximetry. Continue duo nebs and Solu-Medrol (4) Suspected 2019 novel coronavirus infection Current Visit: Yes Status: Acute Plan to address problem: Coronavirus negative (5) COPD exacerbation Current Visit: Yes Status: Acute Plan to address problem: Supplemental oxygen, pulse oximetry, nebulizer therapy, IV steroid therapy, supportive care. (6) Obesity hypoventilation syndrome Current Visit: Yes Status: Acute Plan to address problem: Balanced diet, increase physical activity at discharge, outpatient pulmonary follow-up for sleep study. (7) DVT prophylaxis Current Visit: Yes Status: Acute Plan to address problem: SCD to bilateral lower extremities while in bed, prophylactic anticoagulation Subjective Date of service: 02/17/21 Principal diagnosis: COPD exacerbation COVID-19 positive test (U07.1, COVID-19) with Acute Res Interval history: 65 YO Male with Obesity Hypoventilation Syndrome, Mild Intermittent Asthma, COPD, GERD presents to ED for evaluation. Patient reports "I cannot breathe". Patient states that he has experienced shortness of breath over the past 2 weeks with progressively worsening symptoms over the same timeframe. Patient knowledges malaise, fatigue, shortness of breath, muscle aches. Patient transported to [facility] via private vehicle for further care and evaluation of the aforementioned symptoms. The patient was seen and evaluated in the emergency department. All lab and imaging studies reviewed. The patient was found to have a pulse oximetry of 82% on room air which is consistent with acute hypoxemic respiratory failure. Patient admitted to medical floor due to increased risk of worsening symptoms. Patient initiated on coronavirus protocol. Patient denies fever, chills, chest pain, palpitation, skin rash, recent ill contacts, or known exposure to COVID-19. Prior admission on 07/30/2020 reviewed. All medication listed at time of admission has been reconciled. Advanced care planning conducted in ED. The patient is vaccinated against COVID-19 with the 2 shots from [employer]. 02/17/2021 Still wheezing On oxygen Covid test negative Objective - Constitutional Vitals: Vital Signs - 12hr 02/17/21 02/17/21 02/17/21 19:31 19:41 19:51 Temperature Pulse Rate Respiratory Rate Blood Pressure 122/74 122/74 122/74 Blood Pressure [Right] O2 Sat by Pulse 95 94 94 Oximetry 02/17/21 02/17/21 02/17/21 20:01 20:03 20:11 Temperature 98.1 F Pulse Rate 102 H Respiratory 16 Rate Blood Pressure 152/88 152/88 Blood Pressure 152/88 [Right] O2 Sat by Pulse 95 95 93 Oximetry 02/17/21 02/17/21 02/17/21 21:40 21:59 22:00 Temperature 99.1 F Pulse Rate 96 H Respiratory 20 Rate Blood Pressure 171/92 Blood Pressure [Right] O2 Sat by Pulse 95 95 95 Oximetry General appearance: Present: no acute distress, mild distress, well-nourished - EENT Eyes: PERRL, EOM intact ENT: hearing intact, clear oral mucosa Ears: bilateral: normal - Neck Neck: supple, normal ROM - Respiratory Respiratory effort: normal Respiratory: bilateral: CTA, rhonchi, wheezing - Breasts Breasts: normal - Cardiovascular Heart rate: 78 Rhythm: regular Heart Sounds: Present: S1 & S2. Absent: gallop, rub Extremities: pulses intact, No edema, normal color, Full ROM - Gastrointestinal General gastrointestinal: Present: soft, non-tender, non-distended, normal bowel sounds - Genitourinary Male genitourinary: normal - Integumentary Integumentary: clear, warm, dry - Musculoskeletal Musculoskeletal: 1, strength equal bilaterally - Neurologic Neurologic: moves all extremities - Psychiatric Psychiatric: memory intact, appropriate mood/affect, intact judgment & insight - Labs CBC & Chem 7: 02/17/21 11:16 02/17/21 11:16 Labs: Abnormal lab results 02/17/21 02/17/21 02/17/21 Range/Units 11:16 11:16 22:11 WBC 14.0 H (4.5-11.0) K/mm3 RBC 5.55 H (3.65-5.03) M/mm3 Hgb 16.6 H (11.8-15.2) gm/dl Hct 51.6 H D (35.5-45.6) % Plt Count 86 L (140-440) K/mm3 Lymph % (Auto) 3.9 L (13.4-35.0) % Lymph # (Auto) 0.5 L (1.2-5.4) K/mm3 [place] # (Auto) 0.9 H (0.0-0.8) K/mm3 Seg Neutrophils % 89.7 H (40.0-70.0) % Seg Neutrophils # 12.5 H (1.8-7.7) K/mm3 Sodium 134 L D (137-145) mmol/L Potassium 5.3 H D (3.6-5.0) mmol/L BUN 32 H (9-20) mg/dL Glucose 178 H (75-100) mg/dL POC Glucose 217 H (70-105) mg/dL HEART Score - HEART Score Troponin: Troponin T 0.070 ng/mL (0.00-0.029) H 02/16/21 10:14
[2021-02-18] MEDS: HEPARIN 5,000 UNIT/1 ML VIAL SUB-Q SCH ×2 (09:21→22:38)
[2021-02-18] MEDS: ASCORBIC ACID 500 MG TAB PO SCH ×2 (09:21→22:34)
[2021-02-18] MEDS: CHOLECALCIFEROL (VIT D3) 1000 UNIT (25 mcg) TAB PO SCH (09:21)
[2021-02-18] MEDS: FAMOTIDINE 10 MG TAB PO SCH ×2 (09:21→22:34)
--- NOTE | 2021-02-18 10:21 | Progress Note ---
Assessment and Plan Assessment and plan: --COVID-19 test negative --Acute hypoxemic respiratory failure Current Visit: Yes Status: Acute Continue oxygen nebulizer treatments IV antibiotics and Solu-Medrol And is requiring 3 L of supplemental oxygen Home O2 evaluation prior to discharge --GERD (gastroesophageal reflux disease) Current Visit: Yes Status: Acute PPI therapy, supportive care --Acute bronchitis/pneumonitis Current Visit: Yes Status: Acute Due to COPD exacerbation, IV steroid therapy, s upportive care, supplemental oxygen, pulse oximetry. Continue duo nebs and tapering Solu-Medrol And IV Levaquin --Acute exacerbation of COPD Current Visit: Yes Status: Acute Supplemental oxygen, pulse oximetry, nebulizer therapy, Tapering doses of IV steroid therapy, supportive care. --Obesity BMI 32.0 Current Visit: Yes Status: Acute Dietary modification exercise as tolerated and weight reduction when stable Outpatient pulmonary evaluation to rule out obstructive sleep apnea --DVT prophylaxis Current Visit: Yes Status: Acute SCD to bilateral lower extremities while in bed, prophylactic anticoagulation Subjective Date of service: 02/17/21 Principal diagnosis: COPD exacerbation COVID-19 positive test (U07.1, COVID-19) with Acute Res Interval history: 65 YO Male with Obesity Hypoventilation Syndrome, Mild Intermittent Asthma, COPD, GERD presents to ED for evaluation. Patient reports "I cannot breathe". Patient states that he has experienced shortness of breath over the past 2 weeks with progressively worsening symptoms over the same timeframe. Patient knowledges malaise, fatigue, shortness of breath, muscle aches. Patient transported to [facility] via private vehicle for further care and evaluation of the aforementioned symptoms. The patient was seen and evaluated in the emergency department. All lab and imaging studies reviewed. The patient was found to have a pulse oximetry of 82% on room air which is consistent with acute hypoxemic respiratory failure. Patient admitted to medical floor due to increased risk of worsening symptoms. Patient initiated on coronavirus protocol. Patient denies fever, chills, chest pain, palpitation, skin rash, recent ill contacts, or known exposure to COVID-19. Prior admission on 07/30/2020 reviewed. All medication listed at time of admission has been recon ciled. Advanced care planning conducted in ED. The patient is vaccinated against COVID-19 with the 2 shots from [employer]. 02/17/2021 Still wheezing On oxygen Covid test negative 02/18/2021; Patient feels slightly better Continue current management Possible discharge in 1 to 2 days if stable History Interval history: I have seen and examined the patient at the bedside Patient's chart and medications reviewed Patient feels slightly better Vital signs noted Hospitalist Physical - Constitutional Vitals: Temp Pulse Resp BP Pulse Ox 97.8 F 108 H 18 161/88 92 02/18/21 08:10 02/18/21 08:10 02/18/21 08:10 02/18/21 08:10 02/18/21 08:10 General appearance: Present: no acute distress, mild distress, well-nourished - EENT Eyes: Present: PERRL, EOM intact - Neck Neck: Present: supple, normal ROM - Respiratory Respiratory effort: normal Respiratory: bilateral: diminished, negative: rales, rhonchi, wheezing - Cardiovascular Rhythm: regular Heart Sounds: Present: S1 & S2 - Extremities Extremities: no ischemia, No edema - Abdominal General gastrointestinal: soft, non-tender, non-distended, normal bowel sounds - Integumentary Integumentary: Present: clear, warm - Psychiatric Psychiatric: appropriate mood/affect, cooperative - Neurologic Neurologic: CNII-XII intact, moves all extremities HEART Score - HEART Score Troponin: Troponin T 0.070 ng/mL (0.00-0.029) H 02/16/21 10:14 Results - Labs CBC & Chem 7: 02/17/21 11:16 02/17/21 11:16 Labs: Laboratory Last Values WBC 14.0 K/mm3 (4.5-11.0) H 02/17/21 11:16 RBC 5.55 M/mm3 (3.65-5.03) H 02/17/21 11:16 Hgb 16.6 gm/dl (11.8-15.2) H 02/17/21 11:16 Hct 51.6 % (35.5-45.6) H D 02/17/21 11:16 MCV 93 fl (84-94) 02/17/21 11:16 MCH 30 pg (28-32) 02/17/21 11:16 MCHC 32 % (32-34) 02/17/21 11:16 RDW 14.2 % (13.2-15.2) 02/17/21 11:16 Plt Count 86 K/mm3 (140-440) L 02/17/21 11:16 Lymph % (Auto) 3.9 % (13.4-35.0) L 02/17/21 11:16 [place] % (Auto) 6.1 % (0.0-7.3) 02/17/21 11:16 Eos % (Auto) 0.0 % (0.0-4.3) 02/17/21 11:16 Baso % (Auto) 0.3 % (0.0-1.8) 02/17/21 11:16 Lymph # (Auto) 0.5 K/mm3 (1.2-5.4) L 02/17/21 11:16 [place] # (Auto) 0.9 K/mm3 (0.0-0.8) H 02/17/21 11:16 Eos # (Auto) 0.0 K/mm3 (0.0-0.4) 02/17/21 11:16 Baso # (Auto) 0.0 K/mm3 (0.0-0.1) 02/17/21 11:16 Seg Neutrophils % 89.7 % (40.0-70.0) H 02/17/21 11:16 Seg Neutrophils # 12.5 K/mm3 (1.8-7.7) H 02/17/21 11:16 D-Dimer 622.92 ng/mlDDU (0-234) H 02/16/21 10:14 ABG pH 7.245 (7.320-7.450) L 02/16/21 17:57 POC ABG pCO2 64.8 mmHg (32.0-48.0) H 02/16/21 17:57 POC ABG pO2 72.1 mmHg (83-108) L 02/16/21 17:57 POC ABG HCO3 27.5 02/16/21 17:57 ABG O2 Saturation 93.8 (0-100) 02/16/21 17:57 POC ABG Base Excess -1.6 02/16/21 17:57 ABG Hemoglobin 15.7 (12.0-17.5) 02/16/21 17:57 ABG Oxyhemoglobin 92.3 (94-98) L 02/16/21 17:57 ABG Methemoglobin 0.2 (0.0-1.5) 02/16/21 17:57 ABG Sodium 138.4 mmol/L (136.0-145.0) 02/16/21 17:57 ABG Potassium 4.8 mmol/L (3.40-4.50) H 02/16/21 17:57 ABG Chloride 98.0 mmol/L (98-107) 02/16/21 17:57 ABG Glucose 227 mg/dL (65-95) H 02/16/21 17:57 Carboxyhemoglobin 1.4 (0.5-1.5) 02/16/21 17:57 FiO2 % 28.0 02/16/21 17:57 Sodium 134 mmol/L (137-145) L D 02/17/21 11:16 Potassium 5.3 mmol/L (3.6-5.0) H D 02/17/21 11:16 Chloride 100.5 mmol/L (98-107) 02/17/21 11:16 Carbon Dioxide 22 mmol/L (22-30) D 02/17/21 11:16 Anion Gap 17 mmol/L 02/17/21 11:16 BUN 32 mg/dL (9-20) H 02/17/21 11:16 Creatinine 0.9 mg/dL (0.8-1.3) 02/17/21 11:16 Estimated GFR > 60 ml/min 02/17/21 11:16 BUN/Creatinine Ratio 36 % 02/17/21 11:16 Glucose 178 mg/dL (75-100) H 02/17/21 11:16 POC Glucose 244 mg/dL (70-105) H 02/18/21 08:08 Calcium 9.0 mg/dL (8.4-10.2) 02/17/21 11:16 Ferritin 68.2 ng/mL (30.0-300.0) 02/16/21 13:06 Total Bilirubin 0.50 mg/dL (0.1-1.2) 02/17/21 11:16 AST 40 units/L (5-40) 02/17/21 11:16 ALT 32 units/L (7-56) 02/17/21 11:16 Alkaline Phosphatase 72 units/L (35-129) 02/17/21 11:16 Lactate Dehydrogenase 239 units/L (91-180) H 02/16/21 13:06 Troponin T 0.070 ng/mL (0.00-0.029) H 02/16/21 10:14 C-Reactive Protein 0.50 mg/dL (0.00-1.30) 02/16/21 13:06 NT-Pro-B Natriuret Pep 9.19 pg/mL (0-900) 02/16/21 10:14 Total Protein 7.9 g/dL (6.3-8.2) 02/17/21 11:16 Albumin 4.0 g/dL (3.9-5) 02/17/21 11:16 Albumin/Globulin Ratio 1.0 % 02/17/21 11:16 Triglycerides 266 mg/dL (2-149) H 02/16/21 10:14 Cholesterol 124 mg/dL (50-199) 02/16/21 10:14 LDL Cholesterol Direct 57 mg/dL (50-130) 02/16/21 10:14 HDL Cholesterol 49 mg/dL (40-59) 02/16/21 10:14 Cholesterol/HDL Ratio 2.53 % 02/16/21 10:14 Procalcitonin < 0.05 ng/mL (<0.15) 02/16/21 13:06 Arterial Blood Glucose 227 mg/dL (65-95) H 02/16/21 17:57 Coronavirus (PCR) Negative (Negative) 02/16/21 08:07 Reilly/IV: Voiding Method Toilet Active Medications - Current Medications Current Medications: Generic Name Dose Route Start Last Admin Trade Name Freq PRN Reason Stop Dose Admin Acetaminophen 650 mg 02/16/21 12:24 Acetaminophen 325 Mg Tab PO Q4H PRN Pain MILD(1-3)/Fever >100.5/TYLER Albuterol 2.5 mg 02/16/21 12:24 Albuterol 2.5 Mg/3 Ml Nebu IH Q4HRT PRN Shortness Of Breath Ascorbic Acid 500 mg 02/16/21 22:00 02/18/21 09:21 Ascorbic Acid 500 Mg Tab PO 500 mg BID NANO Administration Cholecalciferol 1,000 unit 02/17/21 10:00 02/18/21 09:21 Cholecalciferol (Vit D3) 1000 Unit (25 Mcg) Tab PO 1,000 unit QDAY NANO Administration Famotidine 10 mg 02/16/21 22:00 02/18/21 09:21 Famotidine 10 Mg Tab PO 10 mg BID NANO Administration Heparin Sodium (Porcine) 5,000 unit 02/16/21 22:00 02/18/21 09:21 Heparin 5,000 Unit/1 Ml Vial SUB-Q 5,000 unit Q12HR NANO Administration Hydromorphone HCl 0.5 mg 02/16/21 20:39 Hydromorphone 1 Mg/1 Ml Inj IV Q12H PRN Pain , Severe (7-10) Insulin Human Lispro 0 unit 02/17/21 22:00 02/18/21 08:30 Insulin Lispro 100 Unit/Ml SUB-Q 1 unit ACHS NANO Administration Protocol Methylprednisolone Sodium Succinate 40 mg 02/16/21 22:00 02/18/21 05:11 Methylprednisolone Sod Succinate 40 Mg/1 Ml Inj IV 40 mg Q8HR NANO Administration Ondansetron HCl 4 mg 02/16/21 12:24 Ondansetron 4 Mg/2 Ml Inj IV Q8H PRN Nausea And Vomiting Oxycodone/Acetaminophen 1 tab 02/16/21 20:39 Oxycodone /Acetaminophen 5-325mg Tab PO Q12H PRN Pain, Moderate (4-6) Sodium Chloride 10 ml 02/16/21 22:00 02/18/21 09:22 Sodium Chloride 0.9% 10 Ml Flush Syringe IV 10 ml BID NANO Administration Sodium Chloride 10 ml 02/16/21 12:24 02/18/21 05:12 Sodium Chloride 0.9% 10 Ml Flush Syringe IV 10 ml PRN PRN Administration LINE FLUSH Zinc Sulfate 220 mg 02/16/21 22:00 02/18/21 00:04 Zinc Sulfate 220 Mg Cap PO 220 mg BID NANO Administration
[2021-02-18] MEDS ORDERED: IPRATROPIUM 0.02% NEBU 2.5 ML IH PRN (11:38)
[2021-02-18] MEDS: amLODIPine 10 MG TAB PO SCH (12:54)
[2021-02-18] MEDS: glipiZIDE 5 MG TAB PO SCH ×2 (12:54→17:24)
[2021-02-18] MEDS: FLUTICASONE PROPIONATE NASAL SPRAY 16 GM NS SCH (13:18)
[2021-02-18] MEDS: IPRATROPIUM 0.02% NEBU 2.5 ML IH SCH ×3 (14:51→22:35)
[2021-02-19] MEDS: IPRATROPIUM 0.02% NEBU 2.5 ML IH SCH ×2 (00:58→08:35)
[2021-02-19] MEDS: methylPREDNISolone Sod Succinate 40 MG/1 ML INJ IV SCH ×2 (06:11→13:00)
[2021-02-19] MEDS: INSULIN LISPRO 100 UNIT/ML SUB-Q SCH ×2 (08:53→12:48)
[2021-02-19] MEDS: glipiZIDE 5 MG TAB PO SCH (08:54)
[2021-02-19 09:00] VITALS: BP 148/93
[2021-02-19] MEDS: CHOLECALCIFEROL (VIT D3) 1000 UNIT (25 mcg) TAB PO SCH (09:00)
[2021-02-19] MEDS: ZINC SULFATE 220 MG CAP PO SCH (09:00)
[2021-02-19] MEDS: amLODIPine 10 MG TAB PO SCH (09:00)
[2021-02-19] MEDS: ASCORBIC ACID 500 MG TAB PO SCH (09:00)
[2021-02-19] MEDS: HEPARIN 5,000 UNIT/1 ML VIAL SUB-Q SCH (09:01)
[2021-02-19] MEDS: FAMOTIDINE 10 MG TAB PO SCH (09:01)
[2021-02-19] MEDS: FLUTICASONE PROPIONATE NASAL SPRAY 16 GM NS SCH (09:03)
--- NOTE | 2021-02-19 11:40 | Progress Note ---
Assessment and Plan Assessment and plan: --COVID-19 test negative --Acute hypoxemic respiratory failure Current Visit: Yes Status: Acute Continue oxygen nebulizer treatments IV antibiotics and Solu-Medrol And is requiring 3 L of supplemental oxygen Home O2 evaluation prior to discharge --GERD (gastroesophageal reflux disease) Current Visit: Yes Status: Acute PPI therapy, supportive care --Acute bronchitis/pneumonitis Current Visit: Yes Status: Acute Due to COPD exacerbation, IV steroid therapy, s upportive care, supplemental oxygen, pulse oximetry. Continue duo nebs and tapering Solu-Medrol And IV Levaquin --Acute exacerbation of COPD Current Visit: Yes Status: Acute Supplemental oxygen, pulse oximetry, nebulizer therapy, Tapering doses of IV steroid therapy, supportive care. --Obesity BMI 32.0 Current Visit: Yes Status: Acute Dietary modification exercise as tolerated and weight reduction when stable Outpatient pulmonary evaluation to rule out obstructive sleep apnea --DVT prophylaxis Current Visit: Yes Status: Acute SCD to bilateral lower extremities while in bed, prophylactic anticoagulation Subjective Date of service: 02/17/21 Principal diagnosis: COPD exacerbation COVID-19 positive test (U07.1, COVID-19) with Acute Res Interval history: 65 YO Male with Obesity Hypoventilation Syndrome, Mild Intermittent Asthma, COPD, GERD presents to ED for evaluation. Patient reports "I cannot breathe". Patient states that he has experienced shortness of breath over the past 2 weeks with progressively worsening symptoms over the same timeframe. Patient knowledges malaise, fatigue, shortness of breath, muscle aches. Patient transported to [facility] via private vehicle for further care and evaluation of the aforementioned symptoms. The patient was seen and evaluated in the emergency department. All lab and imaging studies reviewed. The patient was found to have a pulse oximetry of 82% on room air which is consistent with acute hypoxemic respiratory failure. Patient admitted to medical floor due to increased risk of worsening symptoms. Patient initiated on coronavirus protocol. Patient denies fever, chills, chest pain, palpitation, skin rash, recent ill contacts, or known exposure to COVID-19. Prior admission on 07/30/2020 reviewed. All medication listed at time of admission has been recon ciled. Advanced care planning conducted in ED. The patient is vaccinated against COVID-19 with the 2 shots from [employer]. 02/17/2021 Still wheezing On oxygen Covid test negative 02/18/2021; Patient feels slightly better Continue current management Possible discharge in 1 to 2 days if stable Hospitalist Physical - Constitutional Vitals: Temp Pulse Resp BP Pulse Ox 98.4 F 100 H 20 148/93 95 02/19/21 07:53 02/19/21 09:00 02/19/21 08:35 02/19/21 09:00 02/19/21 08:35 General appearance: Present: no acute distress, mild distress, well-nourished HEART Score - HEART Score Troponin: Troponin T 0.070 ng/mL (0.00-0.029) H 02/16/21 10:14 Results - Labs CBC & Chem 7: 02/17/21 11:16 02/17/21 11:16 Labs: Laboratory Last Values WBC 14.0 K/mm3 (4.5-11.0) H 02/17/21 11:16 RBC 5.55 M/mm3 (3.65-5.03) H 02/17/21 11:16 Hgb 16.6 gm/dl (11.8-15.2) H 02/17/21 11:16 Hct 51.6 % (35.5-45.6) H D 02/17/21 11:16 MCV 93 fl (84-94) 02/17/21 11:16 MCH 30 pg (28-32) 02/17/21 11:16 MCHC 32 % (32-34) 02/17/21 11:16 RDW 14.2 % (13.2-15.2) 02/17/21 11:16 Plt Count 86 K/mm3 (140-440) L 02/17/21 11:16 Lymph % (Auto) 3.9 % (13.4-35.0) L 02/17/21 11:16 [place] % (Auto) 6.1 % (0.0-7.3) 02/17/21 11:16 Eos % (Auto) 0.0 % (0.0-4.3) 02/17/21 11:16 Baso % (Auto) 0.3 % (0.0-1.8) 02/17/21 11:16 Lymph # (Auto) 0.5 K/mm3 (1.2-5.4) L 02/17/21 11:16 [place] # (Auto) 0.9 K/mm3 (0.0-0.8) H 02/17/21 11:16 Eos # (Auto) 0.0 K/mm3 (0.0-0.4) 02/17/21 11:16 Baso # (Auto) 0.0 K/mm3 (0.0-0.1) 02/17/21 11:16 Seg Neutrophils % 89.7 % (40.0-70.0) H 02/17/21 11:16 Seg Neutrophils # 12.5 K/mm3 (1.8-7.7) H 02/17/21 11:16 D-Dimer 622.92 ng/mlDDU (0-234) H 02/16/21 10:14 ABG pH 7.245 (7.320-7.450) L 02/16/21 17:57 POC ABG pCO2 64.8 mmHg (32.0-48.0) H 02/16/21 17:57 POC ABG pO2 72.1 mmHg (83-108) L 02/16/21 17:57 POC ABG HCO3 27.5 02/16/21 17:57 ABG O2 Saturation 93.8 (0-100) 02/16/21 17:57 POC ABG Base Excess -1.6 02/16/21 17:57 ABG Hemoglobin 15.7 (12.0-17.5) 02/16/21 17:57 ABG Oxyhemoglobin 92.3 (94-98) L 02/16/21 17:57 ABG Methemoglobin 0.2 (0.0-1.5) 02/16/21 17:57 ABG Sodium 138.4 mmol/L (136.0-145.0) 02/16/21 17:57 ABG Potassium 4.8 mmol/L (3.40-4.50) H 02/16/21 17:57 ABG Chloride 98.0 mmol/L (98-107) 02/16/21 17:57 ABG Glucose 227 mg/dL (65-95) H 02/16/21 17:57 Carboxyhemoglobin 1.4 (0.5-1.5) 02/16/21 17:57 FiO2 % 28.0 02/16/21 17:57 Sodium 134 mmol/L (137-145) L D 02/17/21 11:16 Potassium 5.3 mmol/L (3.6-5.0) H D 02/17/21 11:16 Chloride 100.5 mmol/L (98-107) 02/17/21 11:16 Carbon Dioxide 22 mmol/L (22-30) D 02/17/21 11:16 Anion Gap 17 mmol/L 02/17/21 11:16 BUN 32 mg/dL (9-20) H 02/17/21 11:16 Creatinine 0.9 mg/dL (0.8-1.3) 02/17/21 11:16 Estimated GFR > 60 ml/min 02/17/21 11:16 BUN/Creatinine Ratio 36 % 02/17/21 11:16 Glucose 178 mg/dL (75-100) H 02/17/21 11:16 POC Glucose 223 mg/dL (70-105) H 02/19/21 11:31 Calcium 9.0 mg/dL (8.4-10.2) 02/17/21 11:16 Ferritin 68.2 ng/mL (30.0-300.0) 02/16/21 13:06 Total Bilirubin 0.50 mg/dL (0.1-1.2) 02/17/21 11:16 AST 40 units/L (5-40) 02/17/21 11:16 ALT 32 units/L (7-56) 02/17/21 11:16 Alkaline Phosphatase 72 units/L (35-129) 02/17/21 11:16 Lactate Dehydrogenase 239 units/L (91-180) H 02/16/21 13:06 Troponin T 0.070 ng/mL (0.00-0.029) H 02/16/21 10:14 C-Reactive Protein 0.50 mg/dL (0.00-1.30) 02/16/21 13:06 NT-Pro-B Natriuret Pep 9.19 pg/mL (0-900) 02/16/21 10:14 Total Protein 7.9 g/dL (6.3-8.2) 02/17/21 11:16 Albumin 4.0 g/dL (3.9-5) 02/17/21 11:16 Albumin/Globulin Ratio 1.0 % 02/17/21 11:16 Triglycerides 266 mg/dL (2-149) H 02/16/21 10:14 Cholesterol 124 mg/dL (50-199) 02/16/21 10:14 LDL Cholesterol Direct 57 mg/dL (50-130) 02/16/21 10:14 HDL Cholesterol 49 mg/dL (40-59) 02/16/21 10:14 Cholesterol/HDL Ratio 2.53 % 02/16/21 10:14 Procalcitonin < 0.05 ng/mL (<0.15) 02/16/21 13:06 Arterial Blood Glucose 227 mg/dL (65-95) H 02/16/21 17:57 Coronavirus (PCR) Negative (Negative) 02/16/21 08:07 Reilly/IV: Voiding Method Toilet Active Medications - Current Medications Current Medications: Generic Name Dose Route Start Last Admin Trade Name Freq PRN Reason Stop Dose Admin Acetaminophen 650 mg 02/16/21 12:24 Acetaminophen 325 Mg Tab PO Q4H PRN Pain MILD(1-3)/Fever >100.5/TYLER Albuterol 2.5 mg 02/16/21 12:24 Albuterol 2.5 Mg/3 Ml Nebu IH Q4HRT PRN Shortness Of Breath Amlodipine Besylate 10 mg 02/18/21 12:00 02/19/21 09:00 Amlodipine 10 Mg Tab PO 10 mg QDAY NANO Administration Ascorbic Acid 500 mg 02/16/21 22:00 02/19/21 09:00 Ascorbic Acid 500 Mg Tab PO 500 mg BID NANO Administration Cholecalciferol 1,000 unit 02/17/21 10:00 02/19/21 09:00 Cholecalciferol (Vit D3) 1000 Unit (25 Mcg) Tab PO 1,000 unit QDAY NAON Administration Famotidine 10 mg 02/16/21 22:00 02/19/21 09:01 Famotidine 10 Mg Tab PO 10 mg BID NANO Administration Fluticasone Propionate 50 mcg 02/18/21 13:00 02/19/21 09:03 Fluticasone Propionate Nasal [place] 16 Gm NS 50 mcg QDAY NANO Administration Glipizide 5 mg 02/18/21 12:00 02/19/21 08:54 Glipizide 5 Mg Tab PO 5 mg BIDDIAB NANO Administration Heparin Sodium (Porcine) 5,000 unit 02/16/21 22:00 02/19/21 09:01 Heparin 5,000 Unit/1 Ml Vial SUB-Q 5,000 unit Q12HR NANO Administration Hydromorphone HCl 0.5 mg 02/16/21 20:39 Hydromorphone 1 Mg/1 Ml Inj IV Q12H PRN Pain , Severe (7-10) Levofloxacin/Dextrose 750 mg in 150 mls @ 100 mls/hr 02/18/21 19:00 02/18/21 22:48 Levaquin 750mg/150ml IV 100 mls/hr Q24H NANO Administration Protocol Insulin Human Lispro 0 unit 02/17/21 22:00 02/19/21 08:53 Insulin Lispro 100 Unit/Ml SUB-Q 2 unit ACHS NANO Administration Protocol Ipratropium [place] 0.5 mg 02/18/21 16:00 02/19/21 08:35 Ipratropium 0.02% Nebu 2.5 Ml IH 0.5 mg Q8HRT NANO Administration Methylprednisolone Sodium Succinate 40 mg 02/16/21 22:00 02/19/21 06:11 Methylprednisolone Sod Succinate 40 Mg/1 Ml Inj IV 40 mg Q8HR NANO Administration Ondansetron HCl 4 mg 02/16/21 12:24 Ondansetron 4 Mg/2 Ml Inj IV Q8H PRN Nausea And Vomiting Oxycodone/Acetaminophen 1 tab 02/16/21 20:39 Oxycodone /Acetaminophen 5-325mg Tab PO Q12H PRN Pain, Moderate (4-6) Sodium Chloride 10 ml 02/16/21 22:00 02/19/21 09:04 Sodium Chloride 0.9% 10 Ml Flush Syringe IV 10 ml BID NANO Administration Sodium Chloride 10 ml 02/16/21 12:24 02/19/21 06:12 Sodium Chloride 0.9% 10 Ml Flush Syringe IV 10 ml PRN PRN Administration LINE FLUSH Zinc Sulfate 220 mg 02/16/21 22:00 02/19/21 09:00 Zinc Sulfate 220 Mg Cap PO 220 mg BID NANO Administration
--- NOTE | 2021-02-19 13:00 | Discharge Summary ---
Providers - Providers Date of Admission: 02/16/21 20:39 Date of discharge: 02/19/21 Attending physician: BESSY DIOR Primary care physician: [facility] Hospitalization Reason for admission: Acute hypoxic respiratory failure Condition: Serious Hospital course: --COVID-19 test negative --Acute hypoxemic respiratory failure Current Visit: Yes Status: Acute Continue oxygen nebulizer treatments IV antibiotics and Solu-Medrol And is requiring 3 L of supplemental oxygen Home O2 evaluation prior to discharge --GERD (gastroesophageal reflux disease) Current Visit: Yes Status: Acute PPI therapy, supportive care --Acute bronchitis/pneumonitis Current Visit: Yes Status: Acute Due to COPD exacerbation, IV steroid therapy, s upportive care, supplemental oxygen, pulse oximetry. Continue duo nebs and tapering Solu-Medrol And IV Levaquin --Acute exacerbation of COPD Current Visit: Yes Status: Acute Supplemental oxygen, pulse oximetry, nebulizer therapy, Tapering doses of IV steroid therapy, supportive care. --Obesity BMI 32.0 Current Visit: Yes Status: Acute Dietary modification exercise as tolerated and weight reduction when stable Outpatient pulmonary evaluation to rule out obstructive sleep apnea Disposition: DC-30 STILL A PATIENT Final Discharge Diagnosis (Prints w/discharge instructions): COVID-19 test negative. Acute hypoxemic respiratory failure/improved. Acute bronchitis/pneumonitis. Acute exacerbation of COPD. Obesity; BMI 32.0. GERD Time spent for discharge: 35min Exam - Constitutional Vitals: Temp Pulse Resp BP Pulse Ox 98.4 F 100 H 20 148/93 95 02/19/21 07:53 02/19/21 09:00 02/19/21 08:35 02/19/21 09:00 02/19/21 08:35 Plan Activity: advance as tolerated Diet: diabetic Additional Instructions: Advised to continue home oxygen as before. Your blood sugars will be slightly increased when you take steroids. Check with primary care physician for adjustment of diabetic medications if needed. If you have worsening symptoms contact MD or go to emergency room as needed Follow up with: PRIMARY CARE, [Primary Care Provider] - 3-5 Days Prescriptions: Albuterol Sulfate [Albuterol 0.63% NEBS] 0.63 mg IH TID PRN #1 box PRN Reason: Wheezing Ipratropium [Atrovent NEB] 0.5 mg IH Q8HRT PRN #1 box PRN Reason: Wheezing levoFLOXacin [Levaquin] 750 mg PO QDAY #4 tablet guaiFENesin ER [Mucinex ER] 600 mg PO Q12H #30 tablet.er Prednisone [predniSONE 10 mg (6-Day Pack, 21 Tabs)] 10 mg PO .TAPER #1 tab.ds.pk
== END 2021-02-19 14:58 | disposition home or self-care (01) | DRG 193 ==
LOC: ED 09:46 → 3A 20:39 → 4A 02-17 19:38
PROVIDERS: ADMIT Internal Medicine; ATTEND Internal Medicine
PROC: 4A033R1 Measurement of Arterial Saturation, Peripheral, Percutaneous Approach (ICD-10-PCS; principal; 2021-02-16)
DX: J18.9 Pneumonia, unspecified organism (principal); J96.01 Acute respiratory failure with hypoxia; J44.1 Chronic obstructive pulmonary disease with (acute) exacerbation; E66.2 Morbid (severe) obesity with alveolar hypoventilation; J44.0 Chronic obstructive pulmonary disease with (acute) lower respiratory infection; J20.9 Acute bronchitis, unspecified; Z20.822 Contact with and (suspected) exposure to COVID-19; K21.9 Gastro-esophageal reflux disease without esophagitis; I10 Essential (primary) hypertension; Z83.3 Family history of diabetes mellitus; Z82.49 Family history of ischemic heart disease and other diseases of the circulatory system; Z71.3 Dietary counseling and surveillance; Z68.32 Body mass index [BMI] 32.0-32.9, adult
CPT/HCPCS: 36415; 71045; 71275; 80053; 80061; 82728; 82805; 82962; 83615; 83880; 84145; 84484; 85025; 85379; 86140; 93005; 94640; 94644; 94760; G0378; J1644; J1815; J1956; J2920; J2930; Q9967; U0003

== ENCOUNTER 2021-11-10 13:05 | Emergency (ER) | payer OTHER ==
[2021-11-10 14:50] VITALS: BP 180/76
== END 2021-11-10 20:45 | disposition left against medical advice (07) ==
LOC: ED 13:05
DX: R06.02 Shortness of breath (principal); Z53.21 Procedure and treatment not carried out due to patient leaving prior to being seen by health care provider